=== PATIENT | female | born 1950 | race Caucasian/White ===

== ENCOUNTER 2017-01-28 16:09 | Emergency (ER) | payer OTHER ==
--- NOTE | 2017-01-28 16:07 | EDM.PDOC ---
<Jason Cadet - Last Filed: 01/28/17 18:41> ED HPI GENERAL MEDICAL PROBLEM - General Chief Complaint: Gastrointestinal Problem Stated Complaint: NAUSEA/VOMITING, COMING BY AMBULANCE Time Seen by Provider: 01/28/17 16:07 Source of Information: Reports: Patient, EMS, RN Notes Reviewed History Limitations: Reports: No Limitations - History of Present Illness INITIAL COMMENTS - FREE TEXT/NARRATIVE: Patient arrives by ambulance with complaint of nausea, vomiting and diarrhea since 01/25/17, after eating a sandwich that tasted "bad". Denies fever or chills. Admits to generalized weakness, dry mouth, generalized lower and left sided abdominal pain. Denies any bloody or black stool or emesis. Location: Reports: Abdomen Quality: Reports: Ache Severity: Severe Improves with: Reports: None Worsens with: Reports: None Associated Symptoms: Reports: No Other Symptoms Abdominal Pain Score (Numeric/FACES): 2 - Related Data Allergies Allergy/AdvReac Type Severity Reaction Status Date / Time erythromycin base Allergy Nausea and Verified 01/28/17 17:10 Vomiting Past Medical History Endocrine/Metabolic History: Reports: Obesity/BMI 30+ ED ROS GENERAL - Review of Systems Review Of Systems: ROS reveals no pertinent complaints other than HPI. ED EXAM, GI/ABD - Physical Exam Exam: See Below Exam Limited By: No Limitations General Appearance: Obese, Other (chronically ill appearing. ) Eyes: Bilateral: Normal Appearance Ears: Normal External Exam, Normal Canal, Hearing Grossly Normal, Normal TMs Nose: Normal Inspection, Normal Mucosa, No Blood Throat/Mouth: Other (dry oral membranes) Head: Atraumatic, Normocephalic Neck: Normal Inspection, Supple, Non-Tender, Full Range of Motion Respiratory/Chest: Other (decreased sounds in bilateral bases, clear breath sounds. ) Cardiovascular: Normal Peripheral Pulses, Regular Rate, Rhythm, No Edema, No Gallop, No JVD, No Murmur, No Rub GI/Abdominal Exam: Other (obese abdomen with mild tenderness at RLQ, LLQ and LUQ. ) (Female) Exam: Deferred Rectal (Female) Exam: Deferred Back Exam: Normal Inspection, Full Range of Motion, NT Extremities: Other (Pedal edema (chronic per patient). ) Neurological: Alert, Oriented, CN II-XII Intact, Normal Cognition, Normal Gait, Normal Reflexes, No Motor/Sensory Deficits Psychiatric: Normal Affect, Normal Mood Skin Exam: Warm, Dry, Intact, Normal Color, No Rash Course - Vital Signs Last Recorded V/S: Last Vital Signs Temp 96.8 F 01/28/17 21:23 Pulse 61 01/28/17 21:23 Resp 16 01/28/17 21:23 BP 142/73 H 01/28/17 21:23 Pulse Ox 94 L 01/28/17 21:23 - Orders/Labs/Meds Orders: Active Orders 24 hr Category Date Time Status Peripheral IV Care [RC] . DIRECTED Care 01/28/17 16:10 Active CULTURE BLOOD [BC] Stat Lab 01/28/17 16:27 Received CULTURE BLOOD [BC] Stat Lab 01/28/17 16:48 Received Blood Culture x2 Reflex Set [OM.PC] Stat Oth 01/28/17 16:10 Ordered Peripheral IV Insertion Adult [OM.PC] Stat Oth 01/28/17 16:09 Ordered Labs: Laboratory Tests 01/28/17 01/28/17 01/28/17 Range/Units 16:27 16:48 16:49 WBC 16.1 H (5.0-10.0) 10^3/uL RBC 5.77 H (4.2-5.4) 10^6/uL Hgb 16.6 H (12.0-16.0) g/dL Hct 49.4 H (37.0-47.0) % MCV 85.6 (80-100) fL MCH 28.8 (27.0-34.0) pg MCHC 33.6 (33.0-35.0) g/dL Plt Count 268 (150-450) 10^3/uL Neut % (Auto) 74.5 (42.2-75.2) % Lymph % (Auto) 9.1 L (20.5-50.1) % Beaver % (Auto) 9.5 H (2-8) % Eos % (Auto) 6.9 H (1.0-3.0) % Baso % (Auto) 0.0 (0.0-1.0) % Add Manual Diff Yes Neutrophils % (Manual) 60 % Band Neutrophils % 20 % Lymphocytes % (Manual) 9 % Monocytes % (Manual) 7 % Eosinophils % (Manual) 4 % Nucleated RBCs 1 /100WBC Toxic Granulation 1+ slight Platelet Estimate Adequate Giant Platelets Few Sodium 132 L (135-145) mmol/L Potassium 3.0 L (3.6-5.0) mmol/L Chloride 84 L (101-111) mmol/L Carbon Dioxide 32.0 H (21.0-31.0) mmol/L Anion Gap 19.0 BUN 45 H (7-18) mg/dL Creatinine 2.5 H (0.6-1.3) mg/dL Est Cr Clr Drug Dosing TNP Estimated GFR (MDRD) 19 BUN/Creatinine Ratio 18.00 Glucose 275 H (74-105) mg/dL Lactic Acid 1.9 (0.5-2.2) mmol/L Calcium 10.0 (8.4-10.2) mg/dl Total Bilirubin 1.0 (0.2-1.0) mg/dL AST 36 (10-42) IU/L ALT 26 (10-60) IU/L Alkaline Phosphatase 66 (42-121) IU/L Troponin I < 0.02 (0.00-0.02) ng/ml Total Protein 7.7 (6.7-8.2) g/dl Albumin 3.9 (3.2-5.5) g/dl Globulin 3.8 Albumin/Globulin Ratio 1.03 Amylase 59 (28-100) U/L Lipase 64 H (22-51) U/L Urine Color (YELLOW) Urine Appearance (CLEAR) Urine pH (5.0-9.0) Ur Specific [place] (1.005-1.030) Urine Protein (NEGATIVE) Urine Glucose (UA) (NEGATIVE) Urine Ketones (NEGATIVE) Urine Occult Blood (NEGATIVE) Urine Nitrite (NEGATIVE) Urine Bilirubin (NEGATIVE) Urine Urobilinogen (0.2-1.0) mg/dL Ur Leukocyte Esterase (NEGATIVE) Urine RBC /HPF Urine WBC (0-5/HPF) /HPF Ur Epithelial Cells /HPF Urine Bacteria (0-FEW/HPF) /HPF 01/28/17 Range/Units 17:09 WBC (5.0-10.0) 10^3/uL RBC (4.2-5.4) 10^6/uL Hgb (12.0-16.0) g/dL Hct (37.0-47.0) % MCV (80-100) fL MCH (27.0-34.0) pg MCHC (33.0-35.0) g/dL Plt Count (150-450) 10^3/uL Neut % (Auto) (42.2-75.2) % Lymph % (Auto) (20.5-50.1) % Beaver % (Auto) (2-8) % Eos % (Auto) (1.0-3.0) % Baso % (Auto) (0.0-1.0) % Add Manual Diff Neutrophils % (Manual) % Band Neutrophils % % Lymphocytes % (Manual) % Monocytes % (Manual) % Eosinophils % (Manual) % Nucleated RBCs /100WBC Toxic Granulation Platelet Estimate Giant Platelets Sodium (135-145) mmol/L Potassium (3.6-5.0) mmol/L Chloride (101-111) mmol/L Carbon Dioxide (21.0-31.0) mmol/L Anion Gap BUN (7-18) mg/dL Creatinine (0.6-1.3) mg/dL Est Cr Clr Drug Dosing Estimated GFR (MDRD) BUN/Creatinine Ratio Glucose (74-105) mg/dL Lactic Acid (0.5-2.2) mmol/L Calcium (8.4-10.2) mg/dl Total Bilirubin (0.2-1.0) mg/dL AST (10-42) IU/L ALT (10-60) IU/L Alkaline Phosphatase (42-121) IU/L Troponin I (0.00-0.02) ng/ml Total Protein (6.7-8.2) g/dl Albumin (3.2-5.5) g/dl Globulin Albumin/Globulin Ratio Amylase (28-100) U/L Lipase (22-51) U/L Urine Color Dark yellow (YELLOW) Urine Appearance Slightly cloudy (CLEAR) Urine pH 5.0 (5.0-9.0) Ur Specific [place] 1.015 (1.005-1.030) Urine Protein 100 H (NEGATIVE) Urine Glucose (UA) Negative (NEGATIVE) Urine Ketones Negative (NEGATIVE) Urine Occult Blood Negative (NEGATIVE) Urine Nitrite Negative (NEGATIVE) Urine Bilirubin Small H (NEGATIVE) Urine Urobilinogen 0.2 (0.2-1.0) mg/dL Ur Leukocyte Esterase Trace H (NEGATIVE) Urine RBC 0-5 /HPF Urine WBC 5-10 H (0-5/HPF) /HPF Ur Epithelial Cells Many H /HPF Urine Bacteria Few (0-FEW/HPF) /HPF Meds: Medications Discontinued Medications Generic Name Dose Route Start Last Admin Trade Name Samira PRN Reason Stop Dose Admin Ciprofloxacin 500 mg 01/28/17 20:31 01/28/17 20:45 Ciprofloxacin Hcl PO 01/28/17 20:32 500 mg ONETIME ONE Administration Fentanyl 25 mcg 01/28/17 19:16 01/28/17 19:29 Sublimaze IVPUSH 01/28/17 19:17 25 mcg ONETIME ONE Administration Sodium Chloride 1,000 mls @ 999 mls/hr 01/28/17 16:10 01/28/17 18:05 Normal Saline IV 01/28/17 17:10 999 mls/hr .BOLUS ONE Administration Potassium Chloride 10 meq/ 100 mls @ 100 mls/hr 01/28/17 17:38 01/28/17 18:07 Premix IV 01/28/17 18:37 100 mls/hr ONETIME ONE Administration Metoclopramide HCl 10 mg 01/28/17 19:14 01/28/17 19:28 Reglan IVPUSH 01/28/17 19:15 10 mg ONETIME ONE Administration Metronidazole 500 mg 01/28/17 20:31 01/28/17 20:45 Metronidazole PO 01/28/17 20:32 500 mg ONETIME ONE Administration Ondansetron HCl 4 mg 01/28/17 16:10 01/28/17 18:01 Zofran IV 01/28/17 16:11 4 mg ONETIME ONE Administration Sodium Chloride 10 ml 01/28/17 16:09 Saline Flush FLUSH ASDIRECTED PRN Keep Vein Open - Radiology Interpretation Free Text/Narrative:: CT abdomen and pelvis: Departure - Departure Disposition: Home, Self-Care 01 Clinical Impression: Gastroenteritis Abdominal pain Qualifiers: Abdominal location: lower abdomen, unspecified Qualified Code(s): R10.30 - Lower abdominal pain, unspecified Diverticulosis Qualifiers: Diverticulosis site: diverticulosis of large intestine Diverticulosis bleeding : diverticulosis without bleeding Qualified Code(s): K57.30 - Diverticulosis of large intestine without perforation or abscess without bleeding - Discharge Information Instructions: Abdominal Pain, Adult, [id number], Diverticulosis Referrals: PCP,None [Ordering Only Provider] - Forms: ED Department Discharge Additional Instructions: bland soft diet fluids zofran 4mg odt one every 6 hours as needed for nausea flagyl 500mg one three times daily for one week cipro 500mg one twice daily for one week clinic follow up this week, sooner if symptoms worsen <Nannette Edgar - Last Filed: 01/29/17 03:04> Course - Radiology Interpretation Free Text/Narrative:: diverticulosis without sx of diverticulitis - Re-Assessments/Exams Free Text/Narrative Re-Assessment/Exam: Pain improved. Departure - Departure Time of Disposition: 20:49 Condition: Fair
[~2017-01-28 16:09] MED LIST: Sodium Chloride 0.9% 10 ML Syringe FLUSH PRN
[2017-01-28] MEDS ORDERED: Sodium Chloride 0.9% 1,000 ML IV ONE (16:10)
[2017-01-28] MEDS ORDERED: Ondansetron 4 MG/2 ML SDV IV ONE (16:10)
[2017-01-28 17:00] LABS: CHLORIDE,CL 84 mmol/L (101-111); SODIUM,NA 132 mmol/L (135-145)
[2017-01-28] MEDS ORDERED: Potassium Chloride 10 MEQ in Premix Bag 1 BAG IV ONE (17:38)
[2017-01-28] MEDS ORDERED: Metoclopramide 10 MG/2 ML SDV IVPUSH ONE (19:14)
[2017-01-28] MEDS ORDERED: fentaNYL 100 MCG/2 ML SDV IVPUSH ONE (19:16)
[2017-01-28] MEDS ORDERED: Ciprofloxacin 500 MG Tab PO ONE (20:31)
[2017-01-28] MEDS ORDERED: metroNIDAZOLE 250 MG Tab PO ONE (20:31)
[2017-01-28 21:24] VITALS: BP 142/73
== END 2017-01-28 21:24 | disposition home or self-care (01) ==
LOC: DL.ED 16:09
DX: K57.30 Diverticulosis of large intestine without perforation or abscess without bleeding (principal); K52.9 Noninfective gastroenteritis and colitis, unspecified; E66.9 Obesity, unspecified; Z88.1 Allergy status to other antibiotic agents
CPT/HCPCS: 36415; 74176; 80053; 81001; 82150; 83605; 83690; 84484; 85025; 87040; 96365; 96375; 99284; A9270; J2405; J2765; J3010; J3480; J7030

== ENCOUNTER 2021-04-03 17:40 | Inpatient (IN) | payer MEDICARE, OTHER ==
[2021-04-03] MEDS ORDERED: Sodium Chloride 0.9% 10 ML Syringe FLUSH PRN (17:46)
[2021-04-03] MEDS ORDERED: Diphtheria,Pertussis(Acell),Tetanus Vaccine 0.5 ML Syringe IM ONE (17:53)
[2021-04-03] MEDS ORDERED: Iopamidol 612 MG/ML 100 ML Bottle IVPUSH ONE (18:16)
[2021-04-03 18:32] LABS: PTT,PARTIAL THROMBOPLSTIN TIME 19.1 SEC (22.0-34.0)
[2021-04-03 18:43] LABS: CHLORIDE,CL 92 mmol/L (98-107); SODIUM,NA 129 mmol/L (136-145)
--- NOTE | 2021-04-03 19:01 | CT ---
PROCEDURE INFORMATION: Exam: CT Head Without Contrast Exam date and time: 04/03/2021 6:15 PM Age: 70 years old Clinical indication: Injury or trauma; Fall; Blunt trauma (contusions or hematomas); Consciousness not specified; Additional info: Trauma: Fall head injury TECHNIQUE: Imaging protocol: Computed tomography of the head without contrast. Radiation optimization: All CT scans at this facility use at least one of these dose optimization techniques: automated exposure control; mA and/or kV adjustment per patient size (includes targeted exams where dose is matched to clinical indication); or iterative reconstruction. COMPARISON: CT Head wo Cont 07/01/2015 9:23 AM FINDINGS: Brain: There is mild amount of scattered areas of hypoattenuation of the supratentorial white matter, most likely secondary to microvascular ischemic changes. No acute intracranial hemorrhage. Cerebral ventricles: No ventriculomegaly. Paranasal sinuses: Visualized sinuses are unremarkable. No fluid levels. Mastoid air cells: Visualized mastoid air cells are well aerated. Bones/joints: Unremarkable. No acute fracture. Soft tissues: Unremarkable. IMPRESSION: No acute intracranial process.
--- NOTE | 2021-04-03 19:03 | CT ---
PROCEDURE INFORMATION: Exam: CT Cervical Spine Without Contrast Exam date and time: 04/03/2021 6:15 PM Age: 70 years old Clinical indication: Injury or trauma; Fall; Blunt trauma; Additional info: Trauma: Fall head injury TECHNIQUE: Imaging protocol: Computed tomography images of the cervical spine without contrast. Radiation optimization: All CT scans at this facility use at least one of these dose optimization techniques: automated exposure control; mA and/or kV adjustment per patient size (includes targeted exams where dose is matched to clinical indication); or iterative reconstruction. COMPARISON: MR Cervical Spine Comp wo Cont 10/29/2019 1:16 PM FINDINGS: Bones/joints: No acute fracture. Normal alignment. Discs/Spinal canal/Neural foramina: No significant spinal stenosis. Lungs: Lung apices are normal. Soft tissues: Unremarkable. IMPRESSION: No acute fracture or dislocation.
--- NOTE | 2021-04-03 19:08 | EDM.PDOC ---
Scribed by Sandra Richards 04/03/21 1908 for Jason Cadet MD ED HPI GENERAL MEDICAL PROBLEM <Sergio Aaron - Last Filed: 04/03/21 20:50> - General Source of Information: Reports: Patient, EMS, EMS Notes Reviewed, RN, RN Notes Reviewed History Limitations: Reports: No Limitations - History of Present Illness Onset: Today Severity: Severe <Jason Cadet - Last Filed: 04/04/21 07:15> - General Chief Complaint: Trauma Stated Complaint: AMBULANCE Time Seen by Provider: 04/03/21 17:45 - History of Present Illness INITIAL COMMENTS - FREE TEXT/NARRATIVE: Patient arrives to ED by [facility] after a ground level fall at home. Patient states that she hit the back of her head but did not loose consciousness. She has a skin tear on the right arm and pain in the left pelvis. Patient lives home alone and reports that she has had multiple frequent falls in the past few weeks. She denies neck pain, chest pain, nausea, vomiting or shortness of breath. Pt converted to a trauma chart by the RN during the triage process when it was discovered that the pt was on a daily Aspirin 81mg. Pt arrived to ER with no c- collar or c-spine precautions. NEXUS criteria was negative, and c-spine cleared by Hx and exam. No c-collar in ER. GCS on arrival: 15. (Jason Cadet) - Related Data Allergies Allergy/AdvReac Type Severity Reaction Status Date / Time erythromycin base Allergy Nausea and Verified 01/28/17 17:10 Vomiting megestrol Allergy HIVES/UTICA Verified 10/13/18 12:20 LAURA niacin Allergy UNKNOWN Verified 10/13/18 12:20 alcohol AdvReac Itching Verified 10/13/18 12:20 metolazone AdvReac DIZZY, Verified 10/13/18 12:20 LIGHTHEADED Home Meds: Home Meds Ascorbic Acid [Vitamin C with Alba Hips] 1,000 mg PO DAILY 04/03/21 [History] Aspirin [Adult Low Dose Aspirin EC] 81 mg PO DAILY 04/03/21 [History] Calcitriol 0.25 mcg PO DAILY 04/03/21 [History] FLUoxetine [PROzac] 20 mg PO TID 04/03/21 [History] Furosemide 60 mg PO TID 04/03/21 [History] Gabapentin [Neurontin] 300 mg PO BEDTIME 04/03/21 [History] Isosorbide Mononitrate [Isosorbide Mononitrate ER] 30 mg PO DAILY 04/03/21 [History] Metoprolol Tartrate 100 mg PO BID 04/03/21 [History] Montelukast [Singulair] 10 mg PO BEDTIME 04/03/21 [History] Potassium Chloride 20 meq PO DAILY 04/03/21 [History] Simvastatin 40 mg PO BEDTIME 04/03/21 [History] Spironolactone [Aldactone] 25 mg PO DAILY 04/03/21 [History] allopurinoL [Zyloprim] 100 mg PO DAILY 04/03/21 [History] amLODIPine [Norvasc] 5 mg PO DAILY 04/03/21 [History] glipiZIDE [Glucotrol] 5 mg PO DAILY 04/03/21 [History] Past Medical History HEENT History: Reports: Impaired Vision Cardiovascular History: Reports: Hypertension Psychiatric History: Reports: Depression Endocrine/Metabolic History: Reports: Obesity/BMI 30+ <Jason Cadet - Last Filed: 04/04/21 07:15> Social & Family History - Caffeine Use Caffeine Use: Reports: Coffee, Soda, Tea <Jason Cadet - Last Filed: 04/04/21 07:15> Review of Systems - Review of Systems Review Of Systems: Comprehensive ROS is negative, except as noted in HPI. <Jason Cadet - Last Filed: 04/04/21 07:15> ED EXAM, GENERAL - Physical Exam Exam: See Below Exam Limited By: No Limitations General Appearance: Alert, WD/WN, Moderate Distress Eye Exam: Bilateral Eye: EOMI, Normal Inspection, PERRL Ears: Normal External Exam, Normal Canal, Hearing Grossly Normal, Normal TMs Nose: Normal Inspection, Normal Mucosa, No Blood Throat/Mouth: Normal Inspection, Normal Lips, Normal Teeth, Normal Gums, Normal Oropharynx, Normal Voice, No Airway Compromise Head: Atraumatic, Normocephalic Neck: Normal Inspection, Supple, Non-Tender, Full Range of Motion Respiratory/Chest: No Respiratory Distress, Lungs Clear, Normal Breath Sounds, No Accessory Muscle Use, Chest Non-Tender Cardiovascular: Normal Peripheral Pulses, Regular Rate, Rhythm, No Edema, No Gallop, No JVD, No Murmur, No Rub GI/Abdominal: Normal Bowel Sounds, Soft, Non-Tender, No Organomegaly, No Distention, No Abnormal Bruit, No Mass, Other (obese) Back Exam: Normal Inspection, Full Range of Motion, NT Extremities: Other (upper extremity bruising) Psychiatric: Normal Affect, Normal Mood Skin Exam: Other (multiple bruises in different stages of healing) Lymphatic: No Adenopathy <Sergoi Aaron - Last Filed: 04/03/21 20:50> #1 Interpretation EKG Date: 04/03/21 Time: 17:53 Rhythm: Other (sinus rhythm with paired PVCs.) Rate (Beats/Min): 78 [place]: LAD-Left [place] Deviation P-Wave: Present QRS: Other (nonspecific IVCD, LVH, old inferior Q waves, anterior Q waves possibly due to LVH.) ST-T: Normal QT: Normal <Jason Cadet - Last Filed: 04/04/21 07:15> Course - Vital Signs Last Recorded V/S: Last Vital Signs Temp 98.0 F 04/03/21 22:04 Pulse 80 04/03/21 22:04 Resp 16 04/03/21 22:04 BP 136/57 L 04/03/21 22:04 Pulse Ox 97 04/03/21 22:04 - Orders/Labs/Meds Orders: Active Orders 24 hr Category Date Time Status Admission Diagnosis [ADT] Urgent ADT 04/03/21 20:48 Ordered CULTURE BLOOD [BC] Stat Lab 04/03/21 20:47 Received CULTURE URINE [RM] Stat Lab 04/03/21 19:59 Received Sodium Chloride 0.9% [Saline Flush] Med 04/03/21 17:46 Active 10 ml FLUSH ASDIRECTED PRN Peripheral IV Insertion Adult [OM.PC] Stat Oth 04/03/21 17:48 Ordered Medication Orders Acetaminophen (Acetaminophen 325 Mg Tab) 650 mg PO Q4H PRN PRN Reason: Pain (Mild 1-3)/fever Allopurinol (Allopurinol 100 Mg Tab) 100 mg PO DAILY [facility] Amlodipine Besylate (Amlodipine 5 Mg Tab) 5 mg PO DAILY [facility] Ascorbic Acid (Ascorbic Acid 500 Mg Tab) 1,000 mg PO DAILY [facility] Aspirin (Aspirin 81 Mg Tab.Ec) 81 mg PO DAILY [facility] Bisacodyl (Bisacodyl 5 Mg Tab) 5 mg PO DAILY PRN PRN Reason: Constipation Calcitriol (Calcitriol 0.25 Mcg Cap) 0.25 mcg PO DAILY [facility] Ceftriaxone Sodium (Ceftriaxone 1 Gm Vial) 1 gm IM Q24H [facility] Dextrose/Water (50% Dextrose In Water 50 Ml Syringe) 50 ml IVPUSH Q15M PRN PRN Reason: Hypoglycemia Docusate Sodium (Docusate Sodium 100 Mg Cap) 100 mg PO BID PRN PRN Reason: Constipation Enoxaparin Sodium (Enoxaparin 30 Mg/0.3 Ml Syringe) 30 mg SUBCUT DAILY [facility] Fluoxetine HCl (Fluoxetine 10 Mg Cap) 20 mg PO TID [facility] Furosemide (Furosemide 40 Mg Tab) 60 mg PO TID [facility] Gabapentin (Gabapentin 300 Mg Cap) 300 mg PO BEDTIME [facility] Glipizide (Glipizide 5 Mg Tab) 5 mg PO DAILY [facility] Glucagon (Glucagon,Human Recombinant 1 Mg Vial) 1 mg IM Q15M PRN PRN Reason: Hypoglycemia Insulin Human Lispro (Insulin Lispro 100 Units/Ml 3 Ml Vial) 0 unit SUBCUT WITHMEALSANDBED [facility]; Protocol Isosorbide Mononitrate (Isosorbide Mononitrate 30 Mg Tab.Er) 30 mg PO DAILY [facility] Metoprolol Tartrate (Metoprolol Tartrate 50 Mg Tab) 100 mg PO BID [facility] Montelukast Sodium (Montelukast 10 Mg Tab) 10 mg PO BEDTIME [facility] Ondansetron HCl (Ondansetron 4 Mg/2 Ml Sdv) 4 mg IVPUSH Q4H PRN PRN Reason: Nausea/Vomiting Potassium Chloride (Potassium Chloride 10 Meq Tab.Er) 20 meq PO DAILY [facility] Senna/Docusate Sodium (Docusate Sodium/Sennosides 50-8.6 Mg Tab) 1 tab PO BEDTIME PRN PRN Reason: Constipation Simvastatin (Simvastatin 40 Mg Tab) 40 mg PO BEDTIME [facility] Sodium Chloride (Sodium Chloride 0.9% 10 Ml Syringe) 10 ml FLUSH ASDIRECTED PRN PRN Reason: Keep Vein Open Last Admin: 04/03/21 20:39 Dose: 10 ml Documented by: KISHORE Spironolactone (Spironolactone 25 Mg Tab) 25 mg PO DAILY [facility] Labs: Laboratory Tests 10/11/21 10/11/21 10/11/21 Range/Units 18:02 18:02 18:02 WBC 21.6 H (5.0-10.0) 10^3/uL RBC 4.51 (4.2-5.4) 10^6/uL Hgb 12.8 D (12.0-16.0) g/dL Hct 37.1 (37.0-47.0) % MCV 82.3 D (80-100) fL MCH 28.4 (27.0-34.0) pg MCHC 34.5 (33.0-35.0) g/dL Plt Count 369 D (150-450) 10^3/uL Neut % (Auto) 82.0 H (42.2-75.2) % Lymph % (Auto) 7.8 L (20.5-50.1) % [place] % (Auto) 9.9 H (2-8) % Eos % (Auto) 0.0 L (1.0-3.0) % Baso % (Auto) 0.3 (0.0-1.0) % Add Manual Diff Yes Neutrophils % (Manual) 81 H (42-75) % Band Neutrophils % 2 % Lymphocytes % (Manual) 8 L (20-50) % Monocytes % (Manual) 9 H (2-8) % PT 10.6 (9.0-12.0) SEC INR 1.1 (0.9-1.2) APTT 19.1 L (22.0-34.0) SEC Sodium 129 L (136-145) mmol/L Potassium 5.0 (3.5-5.1) mmol/L Chloride 92 L (98-107) mmol/L Carbon Dioxide 22 (21-32) mmol/L Anion Gap 20.0 H (7-13) mEq/L BUN 93 H (7-18) mg/dL Creatinine 2.71 H (0.55-1.02) mg/dL Est Cr Clr Drug Dosing TNP Estimated GFR (MDRD) 17 BUN/Creatinine Ratio 34.3 (No establ ref range) Glucose 421 H* (70-99) mg/dL Calcium 9.0 (8.5-10.1) mg/dL Total Bilirubin 1.1 H (0.2-1.0) mg/dL AST 79 H (15-37) U/L ALT 67 H (14-59) U/L Alkaline Phosphatase 54 (46-116) U/L Troponin I High Sens 11 (<=51) pg/mL Total Protein 6.2 L (6.4-8.2) g/dL Albumin 3.2 L (3.4-5.0) g/dL Globulin 3.0 Albumin/Globulin Ratio 1.07 Urine Color (YELLOW) Urine Appearance (CLEAR) Urine pH (5.0-9.0) Ur Specific [place] (1.005-1.030) Urine Protein (NEGATIVE) Urine Glucose (UA) (NEGATIVE) Urine Ketones (NEGATIVE) Urine Occult Blood (NEGATIVE) Urine Nitrite (NEGATIVE) Urine Bilirubin (NEGATIVE) Urine Urobilinogen (0.2-1.0) mg/dL Ur Leukocyte Esterase (NEGATIVE) Urine RBC (0-5) /HPF Urine WBC (0-5/HPF) /HPF Ur Epithelial Cells (NOT SEEN) /HPF Amorphous Sediment (NOT SEEN) /HPF Urine Bacteria (0-FEW/HPF) /HPF Urine Mucus (NOT SEEN) /LPF Urine Opiates Screen (NEGATIVE) Ur Oxycodone Screen (NEGATIVE) Urine Methadone Screen (NEGATIVE) Ur Barbiturates Screen (NEGATIVE) U Tricyclic Antidepress (NEGATIVE) Ur Phencyclidine Scrn (NEGATIVE) Ur Amphetamine Screen (NEGATIVE) U Methamphetamines Scrn (NEGATIVE) Urine MDMA Screen (NEGATIVE) U Benzodiazepines Scrn (NEGATIVE) Urine Cocaine Screen (NEGATIVE) U Marijuana (THC) Screen (NEGATIVE) Ethyl Alcohol < 3 (0) mg/dL SARS-CoV-2 RNA ([place]EL[place]) (NEGATIVE) 04/03/21 04/03/21 04/03/21 Range/Units 19:43 19:59 19:59 WBC (5.0-10.0) 10^3/uL RBC (4.2-5.4) 10^6/uL Hgb (12.0-16.0) g/dL Hct (37.0-47.0) % MCV (80-100) fL MCH (27.0-34.0) pg MCHC (33.0-35.0) g/dL Plt Count (150-450) 10^3/uL Neut % (Auto) (42.2-75.2) % Lymph % (Auto) (20.5-50.1) % [place] % (Auto) (2-8) % Eos % (Auto) (1.0-3.0) % Baso % (Auto) (0.0-1.0) % Add Manual Diff Neutrophils % (Manual) (42-75) % Band Neutrophils % % Lymphocytes % (Manual) (20-50) % Monocytes % (Manual) (2-8) % PT (9.0-12.0) SEC INR (0.9-1.2) APTT (22.0-34.0) SEC Sodium (136-145) mmol/L Potassium (3.5-5.1) mmol/L Chloride (98-107) mmol/L Carbon Dioxide (21-32) mmol/L Anion Gap (7-13) mEq/L BUN (7-18) mg/dL Creatinine (0.55-1.02) mg/dL Est Cr Clr Drug Dosing Estimated GFR (MDRD) BUN/Creatinine Ratio (No establ ref range) Glucose (70-99) mg/dL Calcium (8.5-10.1) mg/dL Total Bilirubin (0.2-1.0) mg/dL AST (15-37) U/L ALT (14-59) U/L Alkaline Phosphatase (46-116) U/L Troponin I High Sens (<=51) pg/mL Total Protein (6.4-8.2) g/dL Albumin (3.4-5.0) g/dL Globulin Albumin/Globulin Ratio Urine Color Yellow (YELLOW) Urine Appearance Turbid (CLEAR) Urine pH 8.5 (5.0-9.0) Ur Specific [place] 1.020 (1.005-1.030) Urine Protein Negative (NEGATIVE) Urine Glucose (UA) 100 H (NEGATIVE) Urine Ketones Negative (NEGATIVE) Urine Occult Blood Negative (NEGATIVE) Urine Nitrite Positive H (NEGATIVE) Urine Bilirubin Negative (NEGATIVE) Urine Urobilinogen 0.2 (0.2-1.0) mg/dL Ur Leukocyte Esterase Small H (NEGATIVE) Urine RBC 0-5 (0-5) /HPF Urine WBC 30-40 H (0-5/HPF) /HPF Ur Epithelial Cells Few (NOT SEEN) /HPF Amorphous Sediment Moderate H (NOT SEEN) /HPF Urine Bacteria Many H (0-FEW/HPF) /HPF Urine Mucus Few H (NOT SEEN) /LPF Urine Opiates Screen Negative (NEGATIVE) Ur Oxycodone Screen Negative (NEGATIVE) Urine Methadone Screen Negative (NEGATIVE) Ur Barbiturates Screen Negative (NEGATIVE) U Tricyclic Antidepress Negative (NEGATIVE) Ur Phencyclidine Scrn Negative (NEGATIVE) Ur Amphetamine Screen Negative (NEGATIVE) U Methamphetamines Scrn Negative (NEGATIVE) Urine MDMA Screen Negative (NEGATIVE) U Benzodiazepines Scrn Negative (NEGATIVE) Urine Cocaine Screen Negative (NEGATIVE) U Marijuana (THC) Screen Negative (NEGATIVE) Ethyl Alcohol (0) mg/dL SARS-CoV-2 RNA ([place]) Negative (NEGATIVE) Meds: Medications Generic Name Dose Route Start Last Admin Trade Name Freq PRN Reason Stop Dose Admin Acetaminophen 650 mg 04/03/21 22:04 Acetaminophen 325 Mg Tab PO Q4H PRN Pain (Mild 1-3)/fever Allopurinol 100 mg 04/04/21 09:00 Allopurinol 100 Mg Tab PO DAILY [facility] Amlodipine Besylate 5 mg 04/04/21 09:00 Amlodipine 5 Mg Tab PO DAILY [facility] Ascorbic Acid 1,000 mg 04/04/21 09:00 Ascorbic Acid 500 Mg Tab PO DAILY [facility] Aspirin 81 mg 04/04/21 09:00 Aspirin 81 Mg Tab.Ec PO DAILY [facility] Bisacodyl 5 mg 04/03/21 22:04 Bisacodyl 5 Mg Tab PO DAILY PRN Constipation Calcitriol 0.25 mcg 04/04/21 09:00 Calcitriol 0.25 Mcg Cap PO DAILY [facility] Ceftriaxone Sodium 1 gm 04/04/21 21:00 Ceftriaxone 1 Gm Vial IM Q24H [facility] Dextrose/Water 50 ml 04/03/21 22:13 50% Dextrose In Water 50 Ml Syringe IVPUSH Q15M PRN Hypoglycemia Docusate Sodium 100 mg 04/03/21 22:04 Docusate Sodium 100 Mg Cap PO BID PRN Constipation Enoxaparin Sodium 30 mg 04/04/21 09:00 Enoxaparin 30 Mg/0.3 Ml Syringe SUBCUT DAILY [facility] Fluoxetine HCl 20 mg 04/04/21 09:00 Fluoxetine 10 Mg Cap PO TID [facility] Furosemide 60 mg 04/04/21 09:00 Furosemide 40 Mg Tab PO TID [facility] Gabapentin 300 mg 04/04/21 21:00 Gabapentin 300 Mg Cap PO BEDTIME [facility] Glipizide 5 mg 04/04/21 09:00 Glipizide 5 Mg Tab PO DAILY [facility] Glucagon 1 mg 04/03/21 22:13 Glucagon,Human Recombinant 1 Mg Vial IM Q15M PRN Hypoglycemia Insulin Human Lispro 0 unit 04/04/21 08:00 Insulin Lispro 100 Units/Ml 3 Ml Vial SUBCUT WITHMEALSANDBED [facility] Protocol Isosorbide Mononitrate 30 mg 04/04/21 09:00 Isosorbide Mononitrate 30 Mg Tab.Er PO DAILY [facility] Metoprolol Tartrate 100 mg 04/04/21 09:00 Metoprolol Tartrate 50 Mg Tab PO BID [facility] Montelukast Sodium 10 mg 04/04/21 21:00 Montelukast 10 Mg Tab PO BEDTIME [facility] Ondansetron HCl 4 mg 04/03/21 22:04 Ondansetron 4 Mg/2 Ml Sdv IVPUSH Q4H PRN Nausea/Vomiting Potassium Chloride 20 meq 04/04/21 09:00 Potassium Chloride 10 Meq Tab.Er PO DAILY [facility] Senna/Docusate Sodium 1 tab 04/03/21 22:04 Docusate Sodium/Sennosides 50-8.6 Mg Tab PO BEDTIME PRN Constipation Simvastatin 40 mg 04/04/21 21:00 Simvastatin 40 Mg Tab PO BEDTIME [facility] Sodium Chloride 10 ml 04/03/21 17:46 04/03/21 20:39 Sodium Chloride 0.9% 10 Ml Syringe FLUSH 10 ml ASDIRECTED PRN Administration Keep Vein Open Spironolactone 25 mg 04/04/21 09:00 Spironolactone 25 Mg Tab PO DAILY [facility] Discontinued Medications Generic Name Dose Route Start Last Admin Trade Name Freq PRN Reason Stop Dose Admin Diphtheria/Tetanus/Acell Pertussis 0.5 ml 04/03/21 17:53 04/03/21 20:04 Diphtheria,Pertussis(Acell),Tetanus Vaccine 0.5 Ml Syringe IM 04/03/21 17:54 0.5 ml .ONCE ONE Administration Gabapentin 300 mg 04/03/21 22:50 04/03/21 23:21 Gabapentin 300 Mg Cap PO 04/03/21 22:51 300 mg ONETIME ONE Administration Ceftriaxone Sodium 1 gm/ 50 mls @ 100 mls/hr 04/03/21 20:20 04/03/21 20:38 Sodium Chloride IV 04/03/21 20:49 100 mls/hr ONETIME ONE Administration Iopamidol 100 ml 04/03/21 18:16 04/03/21 18:54 Iopamidol 612 Mg/Ml 100 Ml Bottle IVPUSH 04/03/21 18:17 100 ml ONETIME ONE Administration Departure - Departure Time of Disposition: 20:50 Condition: Fair <Sergio Aaron - Last Filed: 04/03/21 20:50> <Jason Cadet - Last Filed: 04/04/21 07:15> - Departure Disposition: Admitted As Inpatient 68 Clinical Impression: UTI (urinary tract infection), Hyponatremia, Frequent falls - My Orders Last 24 Hours: My Active Orders 04/03/21 17:46 Sodium Chloride 0.9% [Saline Flush] 10 ml FLUSH ASDIRECTED PRN 04/03/21 17:48 Peripheral IV Insertion Adult [OM.PC] Stat 04/03/21 19:59 CULTURE URINE [RM] Stat - Assessment/Plan Last 24 Hours: My Active Orders 04/03/21 17:46 Sodium Chloride 0.9% [Saline Flush] 10 ml FLUSH ASDIRECTED PRN 04/03/21 17:48 Peripheral IV Insertion Adult [OM.PC] Stat 04/03/21 19:59 CULTURE URINE [RM] Stat I have read and agree with the documentation that has been completed regarding this visit. By signing this record, I attest that the documentation was completed in my physical presence and is an accurate record of the encounter.
--- NOTE | 2021-04-03 19:24 | CT ---
PROCEDURE INFORMATION: Exam: CT Chest With Contrast; Diagnostic Exam date and time: 04/03/2021 6:25 PM Age: 70 years old Clinical indication: Injury or trauma; Fall; Generalized; Blunt trauma (contusions or hematomas); Additional info: Trauma: Fall, leigh pelvis pain TECHNIQUE: Imaging protocol: Diagnostic computed tomography of the chest with contrast. Radiation optimization: All CT scans at this facility use at least one of these dose optimization techniques: automated exposure control; mA and/or kV adjustment per patient size (includes targeted exams where dose is matched to clinical indication); or iterative reconstruction. Contrast material: ISOVUE 300; Contrast volume: 125 ml; Contrast route: INTRAVENOUS (IV); COMPARISON: CT Abdomen Pelvis wo Cont 11/24/2018 10:07 AM FINDINGS: Lungs: Unremarkable. No consolidation. No masses. Pleural spaces: Unremarkable. No pneumothorax. No pleural effusion. Heart: Unremarkable. No cardiomegaly. No pericardial effusion. Aorta: Unremarkable. No aortic aneurysm. Lymph nodes: Unremarkable. No enlarged lymph nodes. Bones/joints: Unremarkable. No acute fracture. Soft tissues: Unremarkable. IMPRESSION: No acute findings. PROCEDURE INFORMATION: Exam: CT Abdomen And Pelvis With Contrast Exam date and time: 04/03/2021 6:25 PM Age: 70 years old Clinical indication: Injury or trauma; Fall; Generalized; Blunt trauma (contusions or hematomas); Additional info: Trauma: Fall, leigh pelvis pain TECHNIQUE: Imaging protocol: Computed tomography of the abdomen and pelvis with contrast. Radiation optimization: All CT scans at this facility use at least one of these dose optimization techniques: automated exposure control; mA and/or kV adjustment per patient size (includes targeted exams where dose is matched to clinical indication); or iterative reconstruction. Contrast material: ISOVUE 300; Contrast volume: 125 ml; Contrast route: INTRAVENOUS (IV); COMPARISON: CT Abdomen Pelvis wo Cont 11/24/2018 10:07 AM FINDINGS: Liver: Normal. No mass. Gallbladder and bile ducts: Normal. No calcified stones. No ductal dilation. Pancreas: Normal. No ductal dilation. Spleen: Normal. No splenomegaly. Adrenal glands: Normal. No mass. Kidneys and ureters: Normal. No hydronephrosis. Stomach and bowel: There are scattered diverticuli in the distal colon. Pericolonic fat planes are preserved. Bowel gas pattern is nonobstructive. Appendix: No evidence of appendicitis. Intraperitoneal space: Unremarkable. No free air. No significant fluid collection. Vasculature: Unremarkable. No abdominal aortic aneurysm. Lymph nodes: Unremarkable. No enlarged lymph nodes. Urinary bladder: Unremarkable as visualized. Reproductive: Unremarkable as visualized. Bones/joints: Scattered sclerotic foci in pelvis most likely bone islands. No acute fracture. Soft tissues: Unremarkable. IMPRESSION: Colonic diverticulosis. No CT evidence of diverticulitis. No evidence of solid abdominal organ injury.
[2021-04-03 20:10] LABS: AMPHETAMINES,URINE NEGATIVE (NEGATIVE); BARBITURATES,URINE NEGATIVE (NEGATIVE); BENZODIAZEPINE,URINE NEGATIVE (NEGATIVE); MDMA (ECSTASY), URINE NEGATIVE (NEGATIVE); METHADONE,URINE NEGATIVE (NEGATIVE); METHAMPHETAMINES,URINE NEGATIVE (NEGATIVE); OPIATES,URINE NEGATIVE (NEGATIVE); OXYCODONE,URINE NEGATIVE (NEGATIVE); PHENCYCLIDINE,URINE NEGATIVE (NEGATIVE); TCA,URINE NEGATIVE (NEGATIVE)
[2021-04-03] MEDS ORDERED: cefTRIAXone 1 GM in Sodium Chloride 0.9% 50 ML IV ONE (20:20)
[2021-04-03] MEDS ORDERED: Bisacodyl 5 MG Tab PO PRN (22:04)
[2021-04-03] MEDS ORDERED: Acetaminophen 325 MG Tab PO PRN (22:04)
[2021-04-03] MEDS ORDERED: Ondansetron 4 MG/2 ML SDV IVPUSH PRN (22:04)
[2021-04-03] MEDS ORDERED: Docusate Sodium 100 MG Cap PO PRN (22:04)
[2021-04-03] MEDS ORDERED: Glucagon,Human Recombinant 1 MG Vial IM PRN (22:13)
[2021-04-03] MEDS ORDERED: 50% Dextrose in Water 50 ML Syringe IVPUSH PRN (22:13)
--- NOTE | 2021-04-03 22:22 | PCM.HP ---
H&P History of Present Illness - General Date of Service: 04/03/21 Admit Problem/Dx: Admission Diagnosis/Problem Admission Diagnosis/Problem UTI, Urinary tract infectious disease Source of Information: Patient, Provider (ER provider) - History of Present Illness Initial Comments - Free Text/Narative: Patient arrived to ED by Ambulance after a ground level fall at home. Patient states that she hit the back of her head but did not loose consciousness. She has a skin tear on the right arm and pain in the left pelvis. Patient lives home alone and reports that she has had multiple frequent falls in the past few weeks. in fact she fell on Saturday. She denies neck pain, chest pain, nausea, vomiting or shortness of breath. Pt states that her knees gave up while in bath room. She states that she has spinal stenosis and she is scheduled for back surgery in the first week of Apr. PMH: Obesity, DM tyoe 2, recently stopped Insulin to oral medications. CKD stage 4 Chronic lower ext edema Old RT ankle injury ( with chronic brace). PSH: Appendectomy , Cholecystectomy and hematoma drainage of te thigh long time ago. Onset of Symptoms: Reports: Today - Related Data Allergies/Adverse Reactions: Allergies Allergy/AdvReac Type Severity Reaction Status Date / Time erythromycin base Allergy Nausea and Verified 01/28/17 17:10 Vomiting megestrol Allergy HIVES/UTICA Verified 10/13/18 12:20 LAURA niacin Allergy UNKNOWN Verified 10/13/18 12:20 alcohol AdvReac Itching Verified 10/13/18 12:20 metolazone AdvReac DIZZY, Verified 10/13/18 12:20 LIGHTHEADED Home Medications: Home Meds Ascorbic Acid [Vitamin C with Alba Hips] 1,000 mg PO DAILY 04/03/21 [History] Aspirin [Adult Low Dose Aspirin EC] 81 mg PO DAILY 04/03/21 [History] Calcitriol 0.25 mcg PO DAILY 04/03/21 [History] FLUoxetine [PROzac] 20 mg PO TID 04/03/21 [History] Furosemide 60 mg PO TID 04/03/21 [History] Gabapentin [Neurontin] 300 mg PO BEDTIME 04/03/21 [History] Isosorbide Mononitrate [Isosorbide Mononitrate ER] 30 mg PO DAILY 04/03/21 [History] Metoprolol Tartrate 100 mg PO BID 04/03/21 [History] Montelukast [Singulair] 10 mg PO BEDTIME 04/03/21 [History] Potassium Chloride 20 meq PO DAILY 04/03/21 [History] Simvastatin 40 mg PO BEDTIME 04/03/21 [History] Spironolactone [Aldactone] 25 mg PO DAILY 04/03/21 [History] allopurinoL [Zyloprim] 100 mg PO DAILY 04/03/21 [History] amLODIPine [Norvasc] 5 mg PO DAILY 04/03/21 [History] glipiZIDE [Glucotrol] 5 mg PO DAILY 04/03/21 [History] Past Medical History HEENT History: Reports: Impaired Vision Cardiovascular History: Reports: High Cholesterol, Hypertension Psychiatric History: Reports: Depression Endocrine/Metabolic History: Reports: Diabetes, Type II, Obesity/BMI 30+ Social & Family History - Caffeine Use Caffeine Use: Reports: Coffee, Soda, Tea H&P Review of Systems - Review of Systems: Review Of Systems: Comprehensive ROS is negative, except as noted in HPI. General: Denies: Fever, Chills Pulmonary: Denies: Shortness of Breath Cardiovascular: Denies: Chest Pain Gastrointestinal: Denies: Abdominal Pain Genitourinary: Denies: Dysuria Musculoskeletal: Reports: Other (multiple large bruses all over with abrasions to B upper ext) Psychiatric: Denies: Confusion Neurological: Denies: Confusion Hematologic/Lymphatic: Denies: No Symptoms Immunologic: Reports: No Symptoms Exam - Exam Exam: See Below - Exam Quality Assessment: No: Supplemental Oxygen General: Alert, Oriented, Cooperative. No: Mild Distress HEENT: Conjunctiva Clear Neck: Supple Lungs: Clear to Auscultation, Normal Respiratory Effort Cardiovascular: Regular Rate, Regular Rhythm GI/Abdominal Exam: Normal Bowel Sounds, Soft, Non-Tender Rectal (Female) Exam: Deferred Back Exam: Normal Inspection Extremities: Pedal Edema, Other (Ankle support to RT . full range of motion) Skin: Ecchymosis (echhhymosis all over. large abrasions to upper ext. ), Other Neurological: Cranial Nerves Intact, Normal Speech Neuro Extensive - Mental Status: Alert, Oriented x3 Neuro Extensive - Motor, Sensory, Reflexes: CN II-XII Intact. No: Facial Palsy (R), Motor/Sensory Deficits Psychiatric: Alert, Normal Affect, Normal Mood - Patient Data Lab Results Last 24 hrs: Laboratory Results - last 24 hr 04/03/21 04/03/21 04/03/21 Range/Units 18:02 18:02 18:02 WBC 21.6 H (5.0-10.0) 10^3/uL RBC 4.51 (4.2-5.4) 10^6/uL Hgb 12.8 D (12.0-16.0) g/dL Hct 37.1 (37.0-47.0) % MCV 82.3 D (80-100) fL MCH 28.4 (27.0-34.0) pg MCHC 34.5 (33.0-35.0) g/dL Plt Count 369 D (150-450) 10^3/uL Neut % (Auto) 82.0 H (42.2-75.2) % Lymph % (Auto) 7.8 L (20.5-50.1) % Pender % (Auto) 9.9 H (2-8) % Eos % (Auto) 0.0 L (1.0-3.0) % Baso % (Auto) 0.3 (0.0-1.0) % Add Manual Diff Yes Neutrophils % (Manual) 81 H (42-75) % Band Neutrophils % 2 % Lymphocytes % (Manual) 8 L (20-50) % Monocytes % (Manual) 9 H (2-8) % PT 10.6 (9.0-12.0) SEC INR 1.1 (0.9-1.2) APTT 19.1 L (22.0-34.0) SEC Sodium 129 L (136-145) mmol/L Potassium 5.0 (3.5-5.1) mmol/L Chloride 92 L (98-107) mmol/L Carbon Dioxide 22 (21-32) mmol/L Anion Gap 20.0 H (7-13) mEq/L BUN 93 H (7-18) mg/dL Creatinine 2.71 H (0.55-1.02) mg/dL Est Cr Clr Drug Dosing TNP Estimated GFR (MDRD) 17 BUN/Creatinine Ratio 34.3 (No establ ref range) Glucose 421 H* (70-99) mg/dL Calcium 9.0 (8.5-10.1) mg/dL Total Bilirubin 1.1 H (0.2-1.0) mg/dL AST 79 H (15-37) U/L ALT 67 H (14-59) U/L Alkaline Phosphatase 54 (46-116) U/L Troponin I High Sens 11 (<=51) pg/mL Total Protein 6.2 L (6.4-8.2) g/dL Albumin 3.2 L (3.4-5.0) g/dL Globulin 3.0 Albumin/Globulin Ratio 1.07 Urine Color (YELLOW) Urine Appearance (CLEAR) Urine pH (5.0-9.0) Ur Specific Crawford (1.005-1.030) Urine Protein (NEGATIVE) Urine Glucose (UA) (NEGATIVE) Urine Ketones (NEGATIVE) Urine Occult Blood (NEGATIVE) Urine Nitrite (NEGATIVE) Urine Bilirubin (NEGATIVE) Urine Urobilinogen (0.2-1.0) mg/dL Ur Leukocyte Esterase (NEGATIVE) Urine RBC (0-5) /HPF Urine WBC (0-5/HPF) /HPF Ur Epithelial Cells (NOT SEEN) /HPF Amorphous Sediment (NOT SEEN) /HPF Urine Bacteria (0-FEW/HPF) /HPF Urine Mucus (NOT SEEN) /LPF Urine Opiates Screen (NEGATIVE) Ur Oxycodone Screen (NEGATIVE) Urine Methadone Screen (NEGATIVE) Ur Barbiturates Screen (NEGATIVE) U Tricyclic Antidepress (NEGATIVE) Ur Phencyclidine Scrn (NEGATIVE) Ur Amphetamine Screen (NEGATIVE) U Methamphetamines Scrn (NEGATIVE) Urine MDMA Screen (NEGATIVE) U Benzodiazepines Scrn (NEGATIVE) Urine Cocaine Screen (NEGATIVE) U Marijuana (THC) Screen (NEGATIVE) Ethyl Alcohol < 3 (0) mg/dL SARS-CoV-2 RNA (ÁNGELA) (NEGATIVE) 04/03/21 04/03/21 04/03/21 Range/Units 19:43 19:59 19:59 WBC (5.0-10.0) 10^3/uL RBC (4.2-5.4) 10^6/uL Hgb (12.0-16.0) g/dL Hct (37.0-47.0) % MCV (80-100) fL MCH (27.0-34.0) pg MCHC (33.0-35.0) g/dL Plt Count (150-450) 10^3/uL Neut % (Auto) (42.2-75.2) % Lymph % (Auto) (20.5-50.1) % Pender % (Auto) (2-8) % Eos % (Auto) (1.0-3.0) % Baso % (Auto) (0.0-1.0) % Add Manual Diff Neutrophils % (Manual) (42-75) % Band Neutrophils % % Lymphocytes % (Manual) (20-50) % Monocytes % (Manual) (2-8) % PT (9.0-12.0) SEC INR (0.9-1.2) APTT (22.0-34.0) SEC Sodium (136-145) mmol/L Potassium (3.5-5.1) mmol/L Chloride (98-107) mmol/L Carbon Dioxide (21-32) mmol/L Anion Gap (7-13) mEq/L BUN (7-18) mg/dL Creatinine (0.55-1.02) mg/dL Est Cr Clr Drug Dosing Estimated GFR (MDRD) BUN/Creatinine Ratio (No establ ref range) Glucose (70-99) mg/dL Calcium (8.5-10.1) mg/dL Total Bilirubin (0.2-1.0) mg/dL AST (15-37) U/L ALT (14-59) U/L Alkaline Phosphatase (46-116) U/L Troponin I High Sens (<=51) pg/mL Total Protein (6.4-8.2) g/dL Albumin (3.4-5.0) g/dL Globulin Albumin/Globulin Ratio Urine Color Yellow (YELLOW) Urine Appearance Turbid (CLEAR) Urine pH 8.5 (5.0-9.0) Ur Specific Crawford 1.020 (1.005-1.030) Urine Protein Negative (NEGATIVE) Urine Glucose (UA) 100 H (NEGATIVE) Urine Ketones Negative (NEGATIVE) Urine Occult Blood Negative (NEGATIVE) Urine Nitrite Positive H (NEGATIVE) Urine Bilirubin Negative (NEGATIVE) Urine Urobilinogen 0.2 (0.2-1.0) mg/dL Ur Leukocyte Esterase Small H (NEGATIVE) Urine RBC 0-5 (0-5) /HPF Urine WBC 30-40 H (0-5/HPF) /HPF Ur Epithelial Cells Few (NOT SEEN) /HPF Amorphous Sediment Moderate H (NOT SEEN) /HPF Urine Bacteria Many H (0-FEW/HPF) /HPF Urine Mucus Few H (NOT SEEN) /LPF Urine Opiates Screen Negative (NEGATIVE) Ur Oxycodone Screen Negative (NEGATIVE) Urine Methadone Screen Negative (NEGATIVE) Ur Barbiturates Screen Negative (NEGATIVE) U Tricyclic Antidepress Negative (NEGATIVE) Ur Phencyclidine Scrn Negative (NEGATIVE) Ur Amphetamine Screen Negative (NEGATIVE) U Methamphetamines Scrn Negative (NEGATIVE) Urine MDMA Screen Negative (NEGATIVE) U Benzodiazepines Scrn Negative (NEGATIVE) Urine Cocaine Screen Negative (NEGATIVE) U Marijuana (THC) Screen Negative (NEGATIVE) Ethyl Alcohol (0) mg/dL SARS-CoV-2 RNA (ÁNGELA) Negative (NEGATIVE) Result Diagrams: 04/03/21 18:02 04/03/21 18:02 Problem List Initiated/Reviewed/Updated: No Orders Last 24hrs: Active Orders 24 hr Category Date Time Status Admission Diagnosis [ADT] Urgent ADT 04/03/21 20:48 Ordered Admission Status [Patient Status] [ADT] Routine ADT 04/03/21 21:27 Active Patient Status [ADT] Routine ADT 04/03/21 22:04 Ordered Blood Glucose Check, Bedside [RC] WITHMEALSANDBED Care 04/03/21 22:04 Ordered Oxygen Therapy [RC] PRN Care 04/03/21 22:04 Ordered Up With Assistance [RC] ASDIRECTED Care 04/03/21 22:04 Ordered VTE/DVT Education [RC] PER UNIT ROUTINE Care 04/03/21 22:04 Ordered Vital Signs [RC] Q4H Care 04/03/21 22:04 Ordered OT Evaluation and Treatment [CONS] Routine Cons 04/03/21 22:04 Ordered PT Evaluation and Treatment [CONS] Routine Cons 04/03/21 22:04 Ordered Consistent Carbohydrate Diet [DIET] Diet 04/04/21 Breakfast Ordered BASIC METABOLIC PANEL,BMP [CHEM] AM Lab 04/04/21 05:11 Ordered CBC W/O DIFF,HEMOGRAM [HEME] AM Lab 04/04/21 05:11 Ordered CULTURE BLOOD [BC] Stat Lab 04/03/21 20:47 Received CULTURE URINE [RM] Stat Lab 04/03/21 19:59 Received Acetaminophen [TylenoL] Med 04/03/21 22:04 Ordered 650 mg PO Q4H PRN Ascorbic Acid [Vitamin C with Alba Hips] Med 04/04/21 09:00 Ordered 1,000 mg PO DAILY Aspirin [Halfprin] Med 04/04/21 09:00 Ordered 81 mg PO DAILY Calcitriol [Calcitriol] Med 04/04/21 09:00 Ordered 0.25 mcg PO DAILY Dextrose 50% in Water Med 04/03/21 22:13 Ordered 50 ml IVPUSH Q15M PRN Docusate Sodium [Colace] Med 04/03/21 22:04 Ordered 100 mg PO BID PRN Docusate Sodium/Sennosides [Senna Plus] Med 04/03/21 22:04 Ordered 1 tab PO BEDTIME PRN Enoxaparin [Lovenox] Med 04/05/21 09:00 Ordered 40 mg SUBCUT DAILY FLUoxetine [PROzac] Med 04/04/21 09:00 Ordered 20 mg PO TID Furosemide [Lasix] Med 04/04/21 09:00 Ordered 60 mg PO TID Gabapentin [Neurontin] Med 04/04/21 21:00 Ordered 300 mg PO BEDTIME Glucagon,Human Recombinant [GlucaGen] Med 04/03/21 22:13 Ordered 1 mg IM Q15M PRN Insulin Lispro [HumaLOG] Med 04/04/21 08:00 Ordered See Protocol SUBCUT WITHMEALSANDBED Isosorbide Mononitrate [Imdur] Med 04/04/21 09:00 Ordered 30 mg PO DAILY Metoprolol Tartrate Med 04/03/21 22:30 Ordered 100 mg PO BID Montelukast [Singulair] Med 04/04/21 21:00 Ordered 10 mg PO BEDTIME Ondansetron [Zofran] Med 04/03/21 22:04 Ordered 4 mg IVPUSH Q4H PRN Potassium Chloride [Potassium Chloride] Med 04/04/21 09:00 Ordered 20 meq PO DAILY Simvastatin [Zocor] Med 04/04/21 21:00 Ordered 40 mg PO BEDTIME Sodium Chloride 0.9% [Saline Flush] Med 04/03/21 17:46 Active 10 ml FLUSH ASDIRECTED PRN Spironolactone [Aldactone] Med 04/04/21 09:00 Ordered 25 mg PO DAILY allopurinoL [Zyloprim] Med 04/04/21 09:00 Ordered 100 mg PO DAILY amLODIPine [Norvasc] Med 04/04/21 09:00 Ordered 5 mg PO DAILY bisacodyL [Dulcolax] Med 04/03/21 22:04 Ordered 5 mg PO DAILY PRN cefTRIAXone [Rocephin] Med 04/04/21 22:15 Ordered 1 gm IM Q24H glipiZIDE [Glucotrol] Med 04/04/21 09:00 Ordered 5 mg PO DAILY Peripheral IV Insertion Adult [OM.PC] Stat Oth 04/03/21 17:48 Ordered Resuscitation Status Routine Resus Stat 04/03/21 22:04 Ordered Medication Orders Acetaminophen (Acetaminophen 325 Mg Tab) 650 mg PO Q4H PRN PRN Reason: Pain (Mild 1-3)/fever Allopurinol (Allopurinol 100 Mg Tab) 100 mg PO DAILY [facility] Amlodipine Besylate (Amlodipine 5 Mg Tab) 5 mg PO DAILY [facility] Aspirin (Aspirin 81 Mg Tab.Ec) 81 mg PO DAILY [facility] Bisacodyl (Bisacodyl 5 Mg Tab) 5 mg PO DAILY PRN PRN Reason: Constipation Ceftriaxone Sodium (Ceftriaxone 1 Gm Vial) 1 gm IM Q24H [facility] Dextrose/Water (50% Dextrose In Water 50 Ml Syringe) 50 ml IVPUSH Q15M PRN PRN Reason: Hypoglycemia Docusate Sodium (Docusate Sodium 100 Mg Cap) 100 mg PO BID PRN PRN Reason: Constipation Enoxaparin Sodium (Enoxaparin 30 Mg/0.3 Ml Syringe) 30 mg SUBCUT DAILY [facility] Fluoxetine HCl (Fluoxetine 10 Mg Cap) 20 mg PO TID [facility] Furosemide (Furosemide 40 Mg Tab) 60 mg PO TID [facility] Gabapentin (Gabapentin 300 Mg Cap) 300 mg PO BEDTIME [facility] Glipizide (Glipizide 5 Mg Tab) 5 mg PO DAILY [facility] Glucagon (Glucagon,Human Recombinant 1 Mg Vial) 1 mg IM Q15M PRN PRN Reason: Hypoglycemia Insulin Human Lispro (Insulin Lispro 100 Units/Ml 3 Ml Vial) 0 unit SUBCUT WITHMEALSANDBED [facility]; Protocol Isosorbide Mononitrate (Isosorbide Mononitrate 30 Mg Tab.Er) 30 mg PO DAILY [facility] Montelukast Sodium (Montelukast 10 Mg Tab) 10 mg PO BEDTIME [facility] Non-Formulary Medication (Metoprolol Tartrate) 100 mg PO BID [facility] Non-Formulary Medication (Ascorbic Acid [Vitamin C With Alba Hips]) 1,000 mg PO DAILY [facility] Non-Formulary Medication (Calcitriol [Calcitriol]) 0.25 mcg PO DAILY [facility] Non-Formulary Medication (Potassium Chloride [Potassium Chloride]) 20 meq PO DAILY [facility] Ondansetron HCl (Ondansetron 4 Mg/2 Ml Sdv) 4 mg IVPUSH Q4H PRN PRN Reason: Nausea/Vomiting Senna/Docusate Sodium (Docusate Sodium/Sennosides 50-8.6 Mg Tab) 1 tab PO BEDTIME PRN PRN Reason: Constipation Simvastatin (Simvastatin 40 Mg Tab) 40 mg PO BEDTIME [facility] Sodium Chloride (Sodium Chloride 0.9% 10 Ml Syringe) 10 ml FLUSH ASDIRECTED PRN PRN Reason: Keep Vein Open Last Admin: 04/03/21 20:39 Dose: 10 ml Documented by: KISHORE Spironolactone (Spironolactone 25 Mg Tab) 25 mg PO DAILY [facility] Assessment/Plan Comment:: Patient arrived to ED by Ambulance after a ground level fall at home. Patient states that she hit the back of her head but did not loose consciousness. She has a skin tear on the right arm and pain in the left pelvis. Patient lives home alone and reports that she has had multiple frequent falls in the past few weeks. in fact she fell on Saturday. She denies neck pain, chest pain, nausea, vomiting or shortness of breath. Multiple falls: multifactorial spinal stenosis Obesity, Chronic lower ext edema Old RT ankle injury ( with chronic brace). UTI and hyponatremia: less likely to be the main factors. DM type 2, recently stopped Insulin to oral medications. CKD stage 4 Needs PT/OT Pt states that she is scheduled for back surgery in Apr. Ceftiaxone Repeat Na DVT prophylaxis: stat Lovenox after 48 hrs due to wide spread ecchymosis. DNR/DNI
[2021-04-03] MEDS ORDERED: Gabapentin 300 MG Cap PO ONE (22:50)
[2021-04-04 07:23] LABS: ANION GAP 14.2 mEq/L (7-13)
[2021-04-04] MEDS ORDERED: Glucagon,Human Recombinant 1 MG Vial IM PRN (08:12)
[2021-04-04] MEDS ORDERED: 50% Dextrose in Water 50 ML Syringe IVPUSH PRN (08:12)
[2021-04-04] MEDS ORDERED: Insulin Lispro 100 Units/ML 3 ML Vial SUBCUT ONE (08:30)
[2021-04-04] MEDS ORDERED: Enoxaparin 30 MG/0.3 ML Syringe SUBCUT SCH (09:00)
[2021-04-04] MEDS: Ascorbic Acid 500 MG Tab PO SCH (09:32)
[2021-04-04] MEDS: Isosorbide Mononitrate 30 MG Tab.ER PO SCH (09:32)
[2021-04-04] MEDS: Allopurinol 100 MG Tab PO SCH (09:33)
[2021-04-04] MEDS: Calcitriol 0.25 MCG Cap PO SCH (09:33)
[2021-04-04] MEDS: Furosemide 40 MG Tab PO SCH ×3 (09:34→21:04)
[2021-04-04] MEDS: glipiZIDE 5 MG Tab PO SCH (09:34)
[2021-04-04] MEDS: Potassium Chloride 10 MEQ Tab.ER PO SCH (09:35)
[2021-04-04] MEDS: FLUoxetine 10 MG Cap PO SCH ×3 (09:35→21:05)
[2021-04-04] MEDS: Spironolactone 25 MG Tab PO SCH (09:35)
[2021-04-04] MEDS: Metoprolol Tartrate 50 MG Tab PO SCH ×2 (09:35→21:04)
[2021-04-04] MEDS: Aspirin 81 MG Tab.EC PO SCH (09:35)
[2021-04-04] MEDS: amLODIPine 5 MG Tab PO SCH (09:36)
[2021-04-04] MEDS: Insulin Lispro 100 Units/ML 3 ML Vial SUBCUT SCH ×4 (09:36→21:30)
--- NOTE | 2021-04-04 11:25 | PCM.PN ---
- General Info Date of Service: 04/04/21 Functional Status: Reports: Pain Controlled, Tolerating Diet - Review of Systems General: Denies: Fever Pulmonary: Denies: Shortness of Breath Cardiovascular: Denies: Chest Pain Gastrointestinal: Denies: Abdominal Pain Genitourinary: Denies: Dysuria - Patient Data Vitals - Most Recent: Last Vital Signs Temp 98.8 F 04/04/21 08:00 Pulse 69 04/04/21 09:35 Resp 24 H 04/04/21 08:00 BP 170/70 H 04/04/21 09:36 Pulse Ox 96 04/04/21 08:00 Weight - Most Recent: 254 lb 4.8 oz I&O - Last 24 Hours: Intake & Output 04/03/21 04/04/21 04/04/21 22:59 06:59 14:59 Intake Total 400 600 Balance 400 600 Lab Results Last 24 Hours: Laboratory Results - last 24 hr 04/03/21 04/03/21 04/03/21 Range/Units 18:02 18:02 18:02 WBC 21.6 H (5.0-10.0) 10^3/uL RBC 4.51 (4.2-5.4) 10^6/uL Hgb 12.8 D (12.0-16.0) g/dL Hct 37.1 (37.0-47.0) % MCV 82.3 D (80-100) fL MCH 28.4 (27.0-34.0) pg MCHC 34.5 (33.0-35.0) g/dL Plt Count 369 D (150-450) 10^3/uL Neut % (Auto) 82.0 H (42.2-75.2) % Lymph % (Auto) 7.8 L (20.5-50.1) % [place] % (Auto) 9.9 H (2-8) % Eos % (Auto) 0.0 L (1.0-3.0) % Baso % (Auto) 0.3 (0.0-1.0) % Add Manual Diff Yes Neutrophils % (Manual) 81 H (42-75) % Band Neutrophils % 2 % Lymphocytes % (Manual) 8 L (20-50) % Monocytes % (Manual) 9 H (2-8) % PT 10.6 (9.0-12.0) SEC INR 1.1 (0.9-1.2) APTT 19.1 L (22.0-34.0) SEC Sodium 129 L (136-145) mmol/L Potassium 5.0 (3.5-5.1) mmol/L Chloride 92 L (98-107) mmol/L Carbon Dioxide 22 (21-32) mmol/L Anion Gap 20.0 H (7-13) mEq/L BUN 93 H (7-18) mg/dL Creatinine 2.71 H (0.55-1.02) mg/dL Est Cr Clr Drug Dosing TNP Estimated GFR (MDRD) 17 BUN/Creatinine Ratio 34.3 (No establ ref range) Glucose 421 H* (70-99) mg/dL POC Glucose (70-99) mg/dL Calcium 9.0 (8.5-10.1) mg/dL Total Bilirubin 1.1 H (0.2-1.0) mg/dL AST 79 H (15-37) U/L ALT 67 H (14-59) U/L Alkaline Phosphatase 54 (46-116) U/L Troponin I High Sens 11 (<=51) pg/mL Total Protein 6.2 L (6.4-8.2) g/dL Albumin 3.2 L (3.4-5.0) g/dL Globulin 3.0 Albumin/Globulin Ratio 1.07 Urine Color (YELLOW) Urine Appearance (CLEAR) Urine pH (5.0-9.0) Ur Specific [place] (1.005-1.030) Urine Protein (NEGATIVE) Urine Glucose (UA) (NEGATIVE) Urine Ketones (NEGATIVE) Urine Occult Blood (NEGATIVE) Urine Nitrite (NEGATIVE) Urine Bilirubin (NEGATIVE) Urine Urobilinogen (0.2-1.0) mg/dL Ur Leukocyte Esterase (NEGATIVE) Urine RBC (0-5) /HPF Urine WBC (0-5/HPF) /HPF Ur Epithelial Cells (NOT SEEN) /HPF Amorphous Sediment (NOT SEEN) /HPF Urine Bacteria (0-FEW/HPF) /HPF Urine Mucus (NOT SEEN) /LPF Urine Opiates Screen (NEGATIVE) Ur Oxycodone Screen (NEGATIVE) Urine Methadone Screen (NEGATIVE) Ur Barbiturates Screen (NEGATIVE) U Tricyclic Antidepress (NEGATIVE) Ur Phencyclidine Scrn (NEGATIVE) Ur Amphetamine Screen (NEGATIVE) U Methamphetamines Scrn (NEGATIVE) Urine MDMA Screen (NEGATIVE) U Benzodiazepines Scrn (NEGATIVE) Urine Cocaine Screen (NEGATIVE) U Marijuana (THC) Screen (NEGATIVE) Ethyl Alcohol < 3 (0) mg/dL SARS-CoV-2 RNA (ÁNGELA) (NEGATIVE) 04/03/21 04/03/21 04/03/21 Range/Units 19:43 19:59 19:59 WBC (5.0-10.0) 10^3/uL RBC (4.2-5.4) 10^6/uL Hgb (12.0-16.0) g/dL Hct (37.0-47.0) % MCV (80-100) fL MCH (27.0-34.0) pg MCHC (33.0-35.0) g/dL Plt Count (150-450) 10^3/uL Neut % (Auto) (42.2-75.2) % Lymph % (Auto) (20.5-50.1) % [place] % (Auto) (2-8) % Eos % (Auto) (1.0-3.0) % Baso % (Auto) (0.0-1.0) % Add Manual Diff Neutrophils % (Manual) (42-75) % Band Neutrophils % % Lymphocytes % (Manual) (20-50) % Monocytes % (Manual) (2-8) % PT (9.0-12.0) SEC INR (0.9-1.2) APTT (22.0-34.0) SEC Sodium (136-145) mmol/L Potassium (3.5-5.1) mmol/L Chloride (98-107) mmol/L Carbon Dioxide (21-32) mmol/L Anion Gap (7-13) mEq/L BUN (7-18) mg/dL Creatinine (0.55-1.02) mg/dL Est Cr Clr Drug Dosing Estimated GFR (MDRD) BUN/Creatinine Ratio (No establ ref range) Glucose (70-99) mg/dL POC Glucose (70-99) mg/dL Calcium (8.5-10.1) mg/dL Total Bilirubin (0.2-1.0) mg/dL AST (15-37) U/L ALT (14-59) U/L Alkaline Phosphatase (46-116) U/L Troponin I High Sens (<=51) pg/mL Total Protein (6.4-8.2) g/dL Albumin (3.4-5.0) g/dL Globulin Albumin/Globulin Ratio Urine Color Yellow (YELLOW) Urine Appearance Turbid (CLEAR) Urine pH 8.5 (5.0-9.0) Ur Specific [place] 1.020 (1.005-1.030) Urine Protein Negative (NEGATIVE) Urine Glucose (UA) 100 H (NEGATIVE) Urine Ketones Negative (NEGATIVE) Urine Occult Blood Negative (NEGATIVE) Urine Nitrite Positive H (NEGATIVE) Urine Bilirubin Negative (NEGATIVE) Urine Urobilinogen 0.2 (0.2-1.0) mg/dL Ur Leukocyte Esterase Small H (NEGATIVE) Urine RBC 0-5 (0-5) /HPF Urine WBC 30-40 H (0-5/HPF) /HPF Ur Epithelial Cells Few (NOT SEEN) /HPF Amorphous Sediment Moderate H (NOT SEEN) /HPF Urine Bacteria Many H (0-FEW/HPF) /HPF Urine Mucus Few H (NOT SEEN) /LPF Urine Opiates Screen Negative (NEGATIVE) Ur Oxycodone Screen Negative (NEGATIVE) Urine Methadone Screen Negative (NEGATIVE) Ur Barbiturates Screen Negative (NEGATIVE) U Tricyclic Antidepress Negative (NEGATIVE) Ur Phencyclidine Scrn Negative (NEGATIVE) Ur Amphetamine Screen Negative (NEGATIVE) U Methamphetamines Scrn Negative (NEGATIVE) Urine MDMA Screen Negative (NEGATIVE) U Benzodiazepines Scrn Negative (NEGATIVE) Urine Cocaine Screen Negative (NEGATIVE) U Marijuana (THC) Screen Negative (NEGATIVE) Ethyl Alcohol (0) mg/dL SARS-CoV-2 RNA (ÁNGELA) Negative (NEGATIVE) 04/04/21 04/04/21 04/04/21 Range/Units 05:55 05:55 07:53 WBC 10.8 H (5.0-10.0) 10^3/uL RBC 3.68 L (4.2-5.4) 10^6/uL Hgb 10.4 L D (12.0-16.0) g/dL Hct 30.8 L (37.0-47.0) % MCV 83.7 (80-100) fL MCH 28.3 (27.0-34.0) pg MCHC 33.8 (33.0-35.0) g/dL Plt Count 263 D (150-450) 10^3/uL Neut % (Auto) (42.2-75.2) % Lymph % (Auto) (20.5-50.1) % [place] % (Auto) (2-8) % Eos % (Auto) (1.0-3.0) % Baso % (Auto) (0.0-1.0) % Add Manual Diff Neutrophils % (Manual) (42-75) % Band Neutrophils % % Lymphocytes % (Manual) (20-50) % Monocytes % (Manual) (2-8) % PT (9.0-12.0) SEC INR (0.9-1.2) APTT (22.0-34.0) SEC Sodium 128 L (136-145) mmol/L Potassium 4.2 (3.5-5.1) mmol/L Chloride 91 L (98-107) mmol/L Carbon Dioxide 27 (21-32) mmol/L Anion Gap 14.2 H (7-13) mEq/L BUN 87 H (7-18) mg/dL Creatinine 2.77 H (0.55-1.02) mg/dL Est Cr Clr Drug Dosing 15.37 Estimated GFR (MDRD) 17 BUN/Creatinine Ratio (No establ ref range) Glucose 448 H* (70-99) mg/dL POC Glucose 421 H* (70-99) mg/dL Calcium 8.6 (8.5-10.1) mg/dL Total Bilirubin (0.2-1.0) mg/dL AST (15-37) U/L ALT (14-59) U/L Alkaline Phosphatase (46-116) U/L Troponin I High Sens (<=51) pg/mL Total Protein (6.4-8.2) g/dL Albumin (3.4-5.0) g/dL Globulin Albumin/Globulin Ratio Urine Color (YELLOW) Urine Appearance (CLEAR) Urine pH (5.0-9.0) Ur Specific [place] (1.005-1.030) Urine Protein (NEGATIVE) Urine Glucose (UA) (NEGATIVE) Urine Ketones (NEGATIVE) Urine Occult Blood (NEGATIVE) Urine Nitrite (NEGATIVE) Urine Bilirubin (NEGATIVE) Urine Urobilinogen (0.2-1.0) mg/dL Ur Leukocyte Esterase (NEGATIVE) Urine RBC (0-5) /HPF Urine WBC (0-5/HPF) /HPF Ur Epithelial Cells (NOT SEEN) /HPF Amorphous Sediment (NOT SEEN) /HPF Urine Bacteria (0-FEW/HPF) /HPF Urine Mucus (NOT SEEN) /LPF Urine Opiates Screen (NEGATIVE) Ur Oxycodone Screen (NEGATIVE) Urine Methadone Screen (NEGATIVE) Ur Barbiturates Screen (NEGATIVE) U Tricyclic Antidepress (NEGATIVE) Ur Phencyclidine Scrn (NEGATIVE) Ur Amphetamine Screen (NEGATIVE) U Methamphetamines Scrn (NEGATIVE) Urine MDMA Screen (NEGATIVE) U Benzodiazepines Scrn (NEGATIVE) Urine Cocaine Screen (NEGATIVE) U Marijuana (THC) Screen (NEGATIVE) Ethyl Alcohol (0) mg/dL SARS-CoV-2 RNA (ÁNGELA) (NEGATIVE) Med Orders - Current: Current Medications Acetaminophen (Acetaminophen 325 Mg Tab) 650 mg PO Q4H PRN PRN Reason: Pain (Mild 1-3)/fever Allopurinol (Allopurinol 100 Mg Tab) 100 mg PO DAILY [facility] Last Admin: 04/04/21 09:33 Dose: 100 mg Documented by: Amlodipine Besylate (Amlodipine 5 Mg Tab) 5 mg PO DAILY [facility] Last Admin: 04/04/21 09:36 Dose: 5 mg Documented by: Ascorbic Acid (Ascorbic Acid 500 Mg Tab) 1,000 mg PO DAILY [facility] Last Admin: 04/04/21 09:32 Dose: 1,000 mg Documented by: Aspirin (Aspirin 81 Mg Tab.Ec) 81 mg PO DAILY [facility] Last Admin: 04/04/21 09:35 Dose: 81 mg Documented by: Bisacodyl (Bisacodyl 5 Mg Tab) 5 mg PO DAILY PRN PRN Reason: Constipation Calcitriol (Calcitriol 0.25 Mcg Cap) 0.25 mcg PO DAILY [facility] Last Admin: 04/04/21 09:33 Dose: 0.25 mcg Documented by: Dextrose/Water (50% Dextrose In Water 50 Ml Syringe) 50 ml IVPUSH Q15M PRN PRN Reason: Hypoglycemia Docusate Sodium (Docusate Sodium 100 Mg Cap) 100 mg PO BID PRN PRN Reason: Constipation Enoxaparin Sodium (Enoxaparin 30 Mg/0.3 Ml Syringe) 30 mg SUBCUT DAILY [facility] Fluoxetine HCl (Fluoxetine 10 Mg Cap) 20 mg PO TID [facility] Last Admin: 04/04/21 09:35 Dose: 20 mg Documented by: Furosemide (Furosemide 40 Mg Tab) 60 mg PO TID [facility] Last Admin: 04/04/21 09:34 Dose: 60 mg Documented by: Gabapentin (Gabapentin 300 Mg Cap) 300 mg PO BEDTIME [facility] Glipizide (Glipizide 5 Mg Tab) 5 mg PO DAILY [facility] Last Admin: 04/04/21 09:34 Dose: 5 mg Documented by: Glucagon (Glucagon,Human Recombinant 1 Mg Vial) 1 mg IM Q15M PRN PRN Reason: Hypoglycemia Ceftriaxone Sodium 1 gm/ (Sodium Chloride) 50 mls @ 100 mls/hr IV Q24H [facility] Insulin Human Lispro (Insulin Lispro 100 Units/Ml 3 Ml Vial) 0 unit SUBCUT WITHMEALSANDBED [facility]; Protocol Last Admin: 04/04/21 09:36 Dose: Not Given Documented by: Insulin Lispro Protam/Lispro Human (Insulin Lispro Protamine/Lispro 75-25 100 Units/Ml 10 Ml Vial) 32 unit SUBCUT BIDMEALS [facility] Isosorbide Mononitrate (Isosorbide Mononitrate 30 Mg Tab.Er) 30 mg PO DAILY [facility] Last Admin: 04/04/21 09:32 Dose: 30 mg Documented by: Metoprolol Tartrate (Metoprolol Tartrate 50 Mg Tab) 100 mg PO BID [facility] Last Admin: 04/04/21 09:35 Dose: 100 mg Documented by: Montelukast Sodium (Montelukast 10 Mg Tab) 10 mg PO BEDTIME [facility] Ondansetron HCl (Ondansetron 4 Mg/2 Ml Sdv) 4 mg IVPUSH Q4H PRN PRN Reason: Nausea/Vomiting Potassium Chloride (Potassium Chloride 10 Meq Tab.Er) 20 meq PO DAILY [facility] Last Admin: 04/04/21 09:35 Dose: 20 meq Documented by: Senna/Docusate Sodium (Docusate Sodium/Sennosides 50-8.6 Mg Tab) 1 tab PO BEDTIME PRN PRN Reason: Constipation Simvastatin (Simvastatin 40 Mg Tab) 40 mg PO BEDTIME [facility] Sodium Chloride (Sodium Chloride 0.9% 10 Ml Syringe) 10 ml FLUSH ASDIRECTED PRN PRN Reason: Keep Vein Open Last Admin: 04/03/21 20:39 Dose: 10 ml Documented by: Spironolactone (Spironolactone 25 Mg Tab) 25 mg PO DAILY [facility] Last Admin: 04/04/21 09:35 Dose: 25 mg Documented by: Discontinued Medications Ceftriaxone Sodium (Ceftriaxone 1 Gm Vial) 1 gm IM Q24H [facility] Diphtheria/Tetanus/Acell Pertussis (Diphtheria,Pertussis(Acell),Tetanus Vaccine 0.5 Ml Syringe) 0.5 ml IM .ONCE ONE Stop: 04/03/21 17:54 Last Admin: 04/03/21 20:04 Dose: 0.5 ml Documented by: Enoxaparin Sodium (Enoxaparin 30 Mg/0.3 Ml Syringe) 30 mg SUBCUT DAILY [facility] Gabapentin (Gabapentin 300 Mg Cap) 300 mg PO ONETIME ONE Stop: 04/03/21 22:51 Last Admin: 04/03/21 23:21 Dose: 300 mg Documented by: Ceftriaxone Sodium 1 gm/ (Sodium Chloride) 50 mls @ 100 mls/hr IV ONETIME ONE Stop: 04/03/21 20:49 Last Admin: 04/03/21 20:38 Dose: 100 mls/hr Documented by: Insulin Human Lispro (Insulin Lispro 100 Units/Ml 3 Ml Vial) 10 unit SUBCUT ONETIME ONE Stop: 04/04/21 08:31 Last Admin: 04/04/21 09:36 Dose: 10 units Documented by: Iopamidol (Iopamidol 612 Mg/Ml 100 Ml Bottle) 100 ml IVPUSH ONETIME ONE Stop: 04/03/21 18:17 Last Admin: 04/03/21 18:54 Dose: 100 ml Documented by: - Exam Quality Assessment: No: Supplemental Oxygen General: Alert, Oriented HEENT: EOMI Lungs: Clear to Auscultation Cardiovascular: Regular Rate, Regular Rhythm GI/Abdominal Exam: Normal Bowel Sounds, Soft Extremities: Other (brace to RT ankle) Skin: Ecchymosis (an changed from yestarday) Neurological: No New Focal Deficit Psy/Mental Status: Alert - Patient Data Lab Results Last 24 hrs: Laboratory Results - last 24 hr 04/03/21 04/03/21 04/03/21 Range/Units 18:02 18:02 18:02 WBC 21.6 H (5.0-10.0) 10^3/uL RBC 4.51 (4.2-5.4) 10^6/uL Hgb 12.8 D (12.0-16.0) g/dL Hct 37.1 (37.0-47.0) % MCV 82.3 D (80-100) fL MCH 28.4 (27.0-34.0) pg MCHC 34.5 (33.0-35.0) g/dL Plt Count 369 D (150-450) 10^3/uL Neut % (Auto) 82.0 H (42.2-75.2) % Lymph % (Auto) 7.8 L (20.5-50.1) % [place] % (Auto) 9.9 H (2-8) % Eos % (Auto) 0.0 L (1.0-3.0) % Baso % (Auto) 0.3 (0.0-1.0) % Add Manual Diff Yes Neutrophils % (Manual) 81 H (42-75) % Band Neutrophils % 2 % Lymphocytes % (Manual) 8 L (20-50) % Monocytes % (Manual) 9 H (2-8) % PT 10.6 (9.0-12.0) SEC INR 1.1 (0.9-1.2) APTT 19.1 L (22.0-34.0) SEC Sodium 129 L (136-145) mmol/L Potassium 5.0 (3.5-5.1) mmol/L Chloride 92 L (98-107) mmol/L Carbon Dioxide 22 (21-32) mmol/L Anion Gap 20.0 H (7-13) mEq/L BUN 93 H (7-18) mg/dL Creatinine 2.71 H (0.55-1.02) mg/dL Est Cr Clr Drug Dosing TNP Estimated GFR (MDRD) 17 BUN/Creatinine Ratio 34.3 (No establ ref range) Glucose 421 H* (70-99) mg/dL POC Glucose (70-99) mg/dL Calcium 9.0 (8.5-10.1) mg/dL Total Bilirubin 1.1 H (0.2-1.0) mg/dL AST 79 H (15-37) U/L ALT 67 H (14-59) U/L Alkaline Phosphatase 54 (46-116) U/L Troponin I High Sens 11 (<=51) pg/mL Total Protein 6.2 L (6.4-8.2) g/dL Albumin 3.2 L (3.4-5.0) g/dL Globulin 3.0 Albumin/Globulin Ratio 1.07 Urine Color (YELLOW) Urine Appearance (CLEAR) Urine pH (5.0-9.0) Ur Specific [place] (1.005-1.030) Urine Protein (NEGATIVE) Urine Glucose (UA) (NEGATIVE) Urine Ketones (NEGATIVE) Urine Occult Blood (NEGATIVE) Urine Nitrite (NEGATIVE) Urine Bilirubin (NEGATIVE) Urine Urobilinogen (0.2-1.0) mg/dL Ur Leukocyte Esterase (NEGATIVE) Urine RBC (0-5) /HPF Urine WBC (0-5/HPF) /HPF Ur Epithelial Cells (NOT SEEN) /HPF Amorphous Sediment (NOT SEEN) /HPF Urine Bacteria (0-FEW/HPF) /HPF Urine Mucus (NOT SEEN) /LPF Urine Opiates Screen (NEGATIVE) Ur Oxycodone Screen (NEGATIVE) Urine Methadone Screen (NEGATIVE) Ur Barbiturates Screen (NEGATIVE) U Tricyclic Antidepress (NEGATIVE) Ur Phencyclidine Scrn (NEGATIVE) Ur Amphetamine Screen (NEGATIVE) U Methamphetamines Scrn (NEGATIVE) Urine MDMA Screen (NEGATIVE) U Benzodiazepines Scrn (NEGATIVE) Urine Cocaine Screen (NEGATIVE) U Marijuana (THC) Screen (NEGATIVE) Ethyl Alcohol < 3 (0) mg/dL SARS-CoV-2 RNA (ÁNGELA) (NEGATIVE) 04/03/21 04/03/21 04/03/21 Range/Units 19:43 19:59 19:59 WBC (5.0-10.0) 10^3/uL RBC (4.2-5.4) 10^6/uL Hgb (12.0-16.0) g/dL Hct (37.0-47.0) % MCV (80-100) fL MCH (27.0-34.0) pg MCHC (33.0-35.0) g/dL Plt Count (150-450) 10^3/uL Neut % (Auto) (42.2-75.2) % Lymph % (Auto) (20.5-50.1) % [place] % (Auto) (2-8) % Eos % (Auto) (1.0-3.0) % Baso % (Auto) (0.0-1.0) % Add Manual Diff Neutrophils % (Manual) (42-75) % Band Neutrophils % % Lymphocytes % (Manual) (20-50) % Monocytes % (Manual) (2-8) % PT (9.0-12.0) SEC INR (0.9-1.2) APTT (22.0-34.0) SEC Sodium (136-145) mmol/L Potassium (3.5-5.1) mmol/L Chloride (98-107) mmol/L Carbon Dioxide (21-32) mmol/L Anion Gap (7-13) mEq/L BUN (7-18) mg/dL Creatinine (0.55-1.02) mg/dL Est Cr Clr Drug Dosing Estimated GFR (MDRD) BUN/Creatinine Ratio (No establ ref range) Glucose (70-99) mg/dL POC Glucose (70-99) mg/dL Calcium (8.5-10.1) mg/dL Total Bilirubin (0.2-1.0) mg/dL AST (15-37) U/L ALT (14-59) U/L Alkaline Phosphatase (46-116) U/L Troponin I High Sens (<=51) pg/mL Total Protein (6.4-8.2) g/dL Albumin (3.4-5.0) g/dL Globulin Albumin/Globulin Ratio Urine Color Yellow (YELLOW) Urine Appearance Turbid (CLEAR) Urine pH 8.5 (5.0-9.0) Ur Specific [place] 1.020 (1.005-1.030) Urine Protein Negative (NEGATIVE) Urine Glucose (UA) 100 H (NEGATIVE) Urine Ketones Negative (NEGATIVE) Urine Occult Blood Negative (NEGATIVE) Urine Nitrite Positive H (NEGATIVE) Urine Bilirubin Negative (NEGATIVE) Urine Urobilinogen 0.2 (0.2-1.0) mg/dL Ur Leukocyte Esterase Small H (NEGATIVE) Urine RBC 0-5 (0-5) /HPF Urine WBC 30-40 H (0-5/HPF) /HPF Ur Epithelial Cells Few (NOT SEEN) /HPF Amorphous Sediment Moderate H (NOT SEEN) /HPF Urine Bacteria Many H (0-FEW/HPF) /HPF Urine Mucus Few H (NOT SEEN) /LPF Urine Opiates Screen Negative (NEGATIVE) Ur Oxycodone Screen Negative (NEGATIVE) Urine Methadone Screen Negative (NEGATIVE) Ur Barbiturates Screen Negative (NEGATIVE) U Tricyclic Antidepress Negative (NEGATIVE) Ur Phencyclidine Scrn Negative (NEGATIVE) Ur Amphetamine Screen Negative (NEGATIVE) U Methamphetamines Scrn Negative (NEGATIVE) Urine MDMA Screen Negative (NEGATIVE) U Benzodiazepines Scrn Negative (NEGATIVE) Urine Cocaine Screen Negative (NEGATIVE) U Marijuana (THC) Screen Negative (NEGATIVE) Ethyl Alcohol (0) mg/dL SARS-CoV-2 RNA (ÁNGELA) Negative (NEGATIVE) 04/04/21 04/04/21 04/04/21 Range/Units 05:55 05:55 07:53 WBC 10.8 H (5.0-10.0) 10^3/uL RBC 3.68 L (4.2-5.4) 10^6/uL Hgb 10.4 L D (12.0-16.0) g/dL Hct 30.8 L (37.0-47.0) % MCV 83.7 (80-100) fL MCH 28.3 (27.0-34.0) pg MCHC 33.8 (33.0-35.0) g/dL Plt Count 263 D (150-450) 10^3/uL Neut % (Auto) (42.2-75.2) % Lymph % (Auto) (20.5-50.1) % [place] % (Auto) (2-8) % Eos % (Auto) (1.0-3.0) % Baso % (Auto) (0.0-1.0) % Add Manual Diff Neutrophils % (Manual) (42-75) % Band Neutrophils % % Lymphocytes % (Manual) (20-50) % Monocytes % (Manual) (2-8) % PT (9.0-12.0) SEC INR (0.9-1.2) APTT (22.0-34.0) SEC Sodium 128 L (136-145) mmol/L Potassium 4.2 (3.5-5.1) mmol/L Chloride 91 L (98-107) mmol/L Carbon Dioxide 27 (21-32) mmol/L Anion Gap 14.2 H (7-13) mEq/L BUN 87 H (7-18) mg/dL Creatinine 2.77 H (0.55-1.02) mg/dL Est Cr Clr Drug Dosing 15.37 Estimated GFR (MDRD) 17 BUN/Creatinine Ratio (No establ ref range) Glucose 448 H* (70-99) mg/dL POC Glucose 421 H* (70-99) mg/dL Calcium 8.6 (8.5-10.1) mg/dL Total Bilirubin (0.2-1.0) mg/dL AST (15-37) U/L ALT (14-59) U/L Alkaline Phosphatase (46-116) U/L Troponin I High Sens (<=51) pg/mL Total Protein (6.4-8.2) g/dL Albumin (3.4-5.0) g/dL Globulin Albumin/Globulin Ratio Urine Color (YELLOW) Urine Appearance (CLEAR) Urine pH (5.0-9.0) Ur Specific [place] (1.005-1.030) Urine Protein (NEGATIVE) Urine Glucose (UA) (NEGATIVE) Urine Ketones (NEGATIVE) Urine Occult Blood (NEGATIVE) Urine Nitrite (NEGATIVE) Urine Bilirubin (NEGATIVE) Urine Urobilinogen (0.2-1.0) mg/dL Ur Leukocyte Esterase (NEGATIVE) Urine RBC (0-5) /HPF Urine WBC (0-5/HPF) /HPF Ur Epithelial Cells (NOT SEEN) /HPF Amorphous Sediment (NOT SEEN) /HPF Urine Bacteria (0-FEW/HPF) /HPF Urine Mucus (NOT SEEN) /LPF Urine Opiates Screen (NEGATIVE) Ur Oxycodone Screen (NEGATIVE) Urine Methadone Screen (NEGATIVE) Ur Barbiturates Screen (NEGATIVE) U Tricyclic Antidepress (NEGATIVE) Ur Phencyclidine Scrn (NEGATIVE) Ur Amphetamine Screen (NEGATIVE) U Methamphetamines Scrn (NEGATIVE) Urine MDMA Screen (NEGATIVE) U Benzodiazepines Scrn (NEGATIVE) Urine Cocaine Screen (NEGATIVE) U Marijuana (THC) Screen (NEGATIVE) Ethyl Alcohol (0) mg/dL SARS-CoV-2 RNA (ÁNGELA) (NEGATIVE) Result Diagrams: 04/04/21 05:55 04/04/21 05:55 Sepsis Event Note - Evaluation Sepsis Screening Result: No Definite Risk - Focused Exam Vital Signs: Vital Signs Temp Pulse Pulse Resp BP BP Pulse Ox 04/04/21 09:36 170/70 H 04/04/21 09:35 69 170/70 H 04/04/21 09:32 170/70 H 04/04/21 08:00 98.8 F 69 24 H 170/70 H 96 - Problem List Review Problem List Initiated/Reviewed/Updated: No - My Orders Last 24 Hours: My Active Orders 04/03/21 22:04 Patient Status [ADT] Routine Blood Glucose Check, Bedside [RC] WITHMEALSANDBED Oxygen Therapy [RC] PRN Up With Assistance [RC] ASDIRECTED VTE/DVT Education [RC] Vital Signs [RC] 04,08,12,16,20,00 OT Evaluation and Treatment [CONS] Routine PT Evaluation and Treatment [CONS] Routine Acetaminophen [TylenoL] 650 mg PO Q4H PRN Docusate Sodium [Colace] 100 mg PO BID PRN Docusate Sodium/Sennosides [Senna Plus] 1 tab PO BEDTIME PRN Ondansetron [Zofran] 4 mg IVPUSH Q4H PRN bisacodyL [Dulcolax] 5 mg PO DAILY PRN Resuscitation Status Routine 04/03/21 22:13 Dextrose 50% in Water 50 ml IVPUSH Q15M PRN Glucagon,Human Recombinant [GlucaGen] 1 mg IM Q15M PRN 04/04/21 Breakfast Consistent Carbohydrate Diet [DIET] 04/04/21 08:00 Insulin Lispro [HumaLOG] See Protocol SUBCUT WITHMEALSANDBED 04/04/21 09:00 Ascorbic Acid [Vitamin C] 1,000 mg PO DAILY Aspirin [Halfprin] 81 mg PO DAILY FLUoxetine [PROzac] 20 mg PO TID Furosemide [Lasix] 60 mg PO TID Isosorbide Mononitrate [Imdur] 30 mg PO DAILY Metoprolol Tartrate [Lopressor] 100 mg PO BID Potassium Chloride [Klor-Con 10] 20 meq PO DAILY Spironolactone [Aldactone] 25 mg PO DAILY allopurinoL [Zyloprim] 100 mg PO DAILY amLODIPine [Norvasc] 5 mg PO DAILY calcitrioL [Rocaltrol] 0.25 mcg PO DAILY glipiZIDE [Glucotrol] 5 mg PO DAILY 04/04/21 12:00 Insulin Lispro Prot/Lispro [HumaLOG Mix 75-25] 32 unit SUBCUT BIDMEALS 04/04/21 21:00 Gabapentin [Neurontin] 300 mg PO BEDTIME Montelukast [Singulair] 10 mg PO BEDTIME Simvastatin [Zocor] 40 mg PO BEDTIME cefTRIAXone [Rocephin] 1 gm Sodium Chloride 0.9% [Normal Saline] 50 ml IV Q24H 04/05/21 09:00 Enoxaparin [Lovenox] 30 mg SUBCUT DAILY - Plan Plan:: Patient arrived to ED by Ambulance after a ground level fall at home. Patient states that she hit the back of her head but did not loose consciousness. She has a skin tear on the right arm and pain in the left pelvis. Patient lives home alone and reports that she has had multiple frequent falls in the past few weeks. in fact she fell on Saturday. She denies neck pain, chest pain, nausea, vomiting or shortness of breath. Multiple falls: multifactorial spinal stenosis Obesity, Chronic lower ext edema Old RT ankle injury ( with chronic brace). UTI and hyponatremia: less likely to be the main factors. DM type 2, recently stopped Insulin to oral medications. pt states that Lantus caused her severe edema. > Humalog 75/25 at 32 BID CKD stage 4 Needs PT/OT Pt states that she is scheduled for back surgery in Apr. Ceftriaxone Repeat Na, fluid restriction to 1.5 L DVT prophylaxis: stat Lovenox after 48 hrs due to wide spread ecchymosis. DNR/DNI
[2021-04-04] MEDS: Insulin Lispro Protamine/Lispro 75-25 100 Units/ML 10 ML Vial SUBCUT SCH ×2 (13:06→17:48)
[2021-04-04] MEDS ORDERED: cefTRIAXone 1 GM Vial IM SCH (21:00)
[2021-04-04] MEDS ORDERED: cefTRIAXone 1 GM in Sodium Chloride 0.9% 50 ML IV SCH (21:00)
[2021-04-04] MEDS: Montelukast 10 MG Tab PO SCH (21:05)
[2021-04-04] MEDS: Gabapentin 300 MG Cap PO SCH (21:05)
[2021-04-04] MEDS: Simvastatin 40 MG Tab PO SCH (21:05)
[2021-04-05] MEDS: FLUoxetine 10 MG Cap PO SCH ×3 (09:45→21:58)
[2021-04-05] MEDS: Ascorbic Acid 500 MG Tab PO SCH (09:45)
[2021-04-05] MEDS: Aspirin 81 MG Tab.EC PO SCH (09:45)
[2021-04-05] MEDS: Spironolactone 25 MG Tab PO SCH (09:45)
[2021-04-05] MEDS: Calcitriol 0.25 MCG Cap PO SCH (09:45)
[2021-04-05] MEDS: Potassium Chloride 10 MEQ Tab.ER PO SCH (09:46)
[2021-04-05] MEDS: Allopurinol 100 MG Tab PO SCH (09:46)
[2021-04-05] MEDS: glipiZIDE 5 MG Tab PO SCH (09:46)
[2021-04-05] MEDS: Furosemide 40 MG Tab PO SCH ×3 (09:46→21:55)
[2021-04-05] MEDS: Enoxaparin 30 MG/0.3 ML Syringe SUBCUT SCH (09:47)
[2021-04-05] MEDS: Insulin Lispro 100 Units/ML 3 ML Vial SUBCUT SCH ×4 (09:50→22:08)
[2021-04-05] MEDS: Insulin Lispro Protamine/Lispro 75-25 100 Units/ML 10 ML Vial SUBCUT SCH ×2 (09:52→17:59)
[2021-04-05] MEDS: Isosorbide Mononitrate 30 MG Tab.ER PO SCH (09:56)
[2021-04-05] MEDS: Metoprolol Tartrate 50 MG Tab PO SCH ×2 (09:57→21:57)
[2021-04-05] MEDS: amLODIPine 5 MG Tab PO SCH (09:57)
--- NOTE | 2021-04-05 10:41 | PCM.PN ---
- General Info Date of Service: 04/05/21 Functional Status: Reports: Pain Controlled, Tolerating Diet, Ambulating (a little) - Review of Systems General: Denies: Fever Pulmonary: Denies: Shortness of Breath Cardiovascular: Denies: Chest Pain Gastrointestinal: Denies: Abdominal Pain Neurological: Denies: Confusion Psychiatric: Denies: Confusion - Patient Data Vitals - Most Recent: Last Vital Signs Temp 98.6 F 04/05/21 08:00 Pulse 71 04/05/21 09:57 Resp 18 04/05/21 08:00 BP 177/59 H 04/05/21 09:57 Pulse Ox 97 04/05/21 08:00 Weight - Most Recent: 254 lb 4.8 oz I&O - Last 24 Hours: Intake & Output 04/04/21 04/05/21 04/05/21 22:59 06:59 14:59 Intake Total 800 100 Balance 800 100 Lab Results Last 24 Hours: Laboratory Results - last 24 hr 04/04/21 04/04/21 04/04/21 Range/Units 12:07 16:44 21:22 POC Glucose 258 H 202 H 162 H (70-99) mg/dL 04/05/21 Range/Units 07:42 POC Glucose 138 H (70-99) mg/dL [facility] Results Last 24 Hours: Microbiology 04/03/21 19:59 Urine Culture - Preliminary Urine, Catheterized 04/03/21 20:47 Aerobic Blood Culture - Preliminary Blood NO GROWTH AFTER 1 DAY Anaerobic Blood Culture - Preliminary NO GROWTH AFTER 1 DAY Med Orders - Current: Current Medications Acetaminophen (Acetaminophen 325 Mg Tab) 650 mg PO Q4H PRN PRN Reason: Pain (Mild 1-3)/fever Last Admin: 04/05/21 02:14 Dose: 650 mg Documented by: Allopurinol (Allopurinol 100 Mg Tab) 100 mg PO DAILY [facility] Last Admin: 04/05/21 09:46 Dose: 100 mg Documented by: Amlodipine Besylate (Amlodipine 5 Mg Tab) 5 mg PO DAILY [facility] Last Admin: 04/05/21 09:57 Dose: 5 mg Documented by: Ascorbic Acid (Ascorbic Acid 500 Mg Tab) 1,000 mg PO DAILY [facility] Last Admin: 04/05/21 09:45 Dose: 1,000 mg Documented by: Aspirin (Aspirin 81 Mg Tab.Ec) 81 mg PO DAILY [facility] Last Admin: 04/05/21 09:45 Dose: 81 mg Documented by: Bisacodyl (Bisacodyl 5 Mg Tab) 5 mg PO DAILY PRN PRN Reason: Constipation Calcitriol (Calcitriol 0.25 Mcg Cap) 0.25 mcg PO DAILY [facility] Last Admin: 04/05/21 09:45 Dose: 0.25 mcg Documented by: Dextrose/Water (50% Dextrose In Water 50 Ml Syringe) 50 ml IVPUSH Q15M PRN PRN Reason: Hypoglycemia Docusate Sodium (Docusate Sodium 100 Mg Cap) 100 mg PO BID PRN PRN Reason: Constipation Enoxaparin Sodium (Enoxaparin 30 Mg/0.3 Ml Syringe) 30 mg SUBCUT DAILY [facility] Last Admin: 04/05/21 09:47 Dose: 30 mg Documented by: Fluoxetine HCl (Fluoxetine 10 Mg Cap) 20 mg PO TID [facility] Last Admin: 04/05/21 09:45 Dose: 20 mg Documented by: Furosemide (Furosemide 40 Mg Tab) 60 mg PO TID [facility] Last Admin: 04/05/21 09:46 Dose: 60 mg Documented by: Gabapentin (Gabapentin 300 Mg Cap) 300 mg PO BEDTIME [facility] Last Admin: 04/04/21 21:05 Dose: 300 mg Documented by: Glipizide (Glipizide 5 Mg Tab) 5 mg PO DAILY [facility] Last Admin: 04/05/21 09:46 Dose: 5 mg Documented by: Glucagon (Glucagon,Human Recombinant 1 Mg Vial) 1 mg IM Q15M PRN PRN Reason: Hypoglycemia Ceftriaxone Sodium 1 gm/ (Sodium Chloride) 50 mls @ 100 mls/hr IV Q24H [facility] Last Admin: 04/04/21 21:03 Dose: 100 mls/hr Documented by: Insulin Human Lispro (Insulin Lispro 100 Units/Ml 3 Ml Vial) 0 unit SUBCUT WITHMEALSANDBED [facility]; Protocol Last Admin: 04/05/21 09:50 Dose: Not Given Documented by: Insulin Lispro Protam/Lispro Human (Insulin Lispro Protamine/Lispro 75-25 100 Units/Ml 10 Ml Vial) 32 unit SUBCUT BIDMEALS [facility] Last Admin: 04/05/21 09:52 Dose: 32 units Documented by: Isosorbide Mononitrate (Isosorbide Mononitrate 30 Mg Tab.Er) 30 mg PO DAILY [facility] Last Admin: 04/05/21 09:56 Dose: 30 mg Documented by: Metoprolol Tartrate (Metoprolol Tartrate 50 Mg Tab) 100 mg PO BID [facility] Last Admin: 04/05/21 09:57 Dose: 100 mg Documented by: Montelukast Sodium (Montelukast 10 Mg Tab) 10 mg PO BEDTIME [facility] Last Admin: 04/04/21 21:05 Dose: 10 mg Documented by: Ondansetron HCl (Ondansetron 4 Mg/2 Ml Sdv) 4 mg IVPUSH Q4H PRN PRN Reason: Nausea/Vomiting Potassium Chloride (Potassium Chloride 10 Meq Tab.Er) 20 meq PO DAILY [facility] Last Admin: 04/05/21 09:46 Dose: 20 meq Documented by: Senna/Docusate Sodium (Docusate Sodium/Sennosides 50-8.6 Mg Tab) 1 tab PO BEDTIME PRN PRN Reason: Constipation Simvastatin (Simvastatin 40 Mg Tab) 40 mg PO BEDTIME [facility] Last Admin: 04/04/21 21:05 Dose: 40 mg Documented by: Sodium Chloride (Sodium Chloride 0.9% 10 Ml Syringe) 10 ml FLUSH ASDIRECTED PRN PRN Reason: Keep Vein Open Last Admin: 04/03/21 20:39 Dose: 10 ml Documented by: Spironolactone (Spironolactone 25 Mg Tab) 25 mg PO DAILY [facility] Last Admin: 04/05/21 09:45 Dose: 25 mg Documented by: Discontinued Medications Ceftriaxone Sodium (Ceftriaxone 1 Gm Vial) 1 gm IM Q24H [facility] Diphtheria/Tetanus/Acell Pertussis (Diphtheria,Pertussis(Acell),Tetanus Vaccine 0.5 Ml Syringe) 0.5 ml IM .ONCE ONE Stop: 04/03/21 17:54 Last Admin: 04/03/21 20:04 Dose: 0.5 ml Documented by: Enoxaparin Sodium (Enoxaparin 30 Mg/0.3 Ml Syringe) 30 mg SUBCUT DAILY [facility] Gabapentin (Gabapentin 300 Mg Cap) 300 mg PO ONETIME ONE Stop: 04/03/21 22:51 Last Admin: 04/03/21 23:21 Dose: 300 mg Documented by: Ceftriaxone Sodium 1 gm/ (Sodium Chloride) 50 mls @ 100 mls/hr IV ONETIME ONE Stop: 04/03/21 20:49 Last Admin: 04/03/21 20:38 Dose: 100 mls/hr Documented by: Insulin Human Lispro (Insulin Lispro 100 Units/Ml 3 Ml Vial) 10 unit SUBCUT ONETIME ONE Stop: 04/04/21 08:31 Last Admin: 04/04/21 09:36 Dose: 10 units Documented by: Iopamidol (Iopamidol 612 Mg/Ml 100 Ml Bottle) 100 ml IVPUSH ONETIME ONE Stop: 04/03/21 18:17 Last Admin: 04/03/21 18:54 Dose: 100 ml Documented by: - Exam Quality Assessment: No: Supplemental Oxygen General: Alert, Oriented, Cooperative Neck: No JVD Lungs: Clear to Auscultation, Normal Respiratory Effort GI/Abdominal Exam: Soft, Non-Tender, Other (obesity) Back Exam: Normal Inspection Extremities: Other (RT ankle in brace) Skin: Ecchymosis (all over), Other (abrsaion to B upper ext) Neurological: No New Focal Deficit Psy/Mental Status: Alert, Normal Affect - Patient Data Lab Results Last 24 hrs: Laboratory Results - last 24 hr 04/04/21 04/04/21 04/04/21 Range/Units 12:07 16:44 21:22 POC Glucose 258 H 202 H 162 H (70-99) mg/dL 04/05/21 Range/Units 07:42 POC Glucose 138 H (70-99) mg/dL Result Diagrams: 04/04/21 05:55 04/04/21 05:55 [facility] Results Last 24 hrs: Microbiology 04/03/21 19:59 Urine Culture - Preliminary Urine, Catheterized 04/03/21 20:47 Aerobic Blood Culture - Preliminary Blood NO GROWTH AFTER 1 DAY Anaerobic Blood Culture - Preliminary NO GROWTH AFTER 1 DAY Sepsis Event Note - Evaluation Sepsis Screening Result: No Definite Risk - Focused Exam Vital Signs: Vital Signs Temp Pulse Pulse Resp BP BP Pulse Ox 04/05/21 09:57 71 177/59 H 04/05/21 09:56 177/59 H 04/05/21 08:00 98.6 F 71 18 177/59 H 97 04/05/21 04:00 99.3 F 58 L 20 165/62 H 94 L 04/05/21 00:00 99 F 66 20 174/69 H 98 - Problem List Review Problem List Initiated/Reviewed/Updated: No - My Orders Last 24 Hours: My Active Orders 04/04/21 12:00 Insulin Lispro Prot/Lispro [HumaLOG Mix 75-25] 32 unit SUBCUT BIDMEALS 04/04/21 Dinner Fluid Restriction [DIET] 04/04/21 20:25 Communication Order [RC] BID 04/04/21 21:00 Gabapentin [Neurontin] 300 mg PO BEDTIME Montelukast [Singulair] 10 mg PO BEDTIME Simvastatin [Zocor] 40 mg PO BEDTIME cefTRIAXone [Rocephin] 1 gm Sodium Chloride 0.9% [Normal Saline] 50 ml IV Q24H 04/05/21 09:00 Enoxaparin [Lovenox] 30 mg SUBCUT DAILY - Plan Plan:: Patient arrived to ED by Ambulance after a ground level fall at home. Patient states that she hit the back of her head but did not loose consciousness. She has a skin tear on the right arm and pain in the left pelvis. Patient lives home alone and reports that she has had multiple frequent falls in the past few weeks. in fact she fell on Saturday. She denies neck pain, chest pain, nausea, vomiting or shortness of breath. Multiple falls: multifactorial spinal stenosis Obesity, Chronic lower ext edema Old RT ankle injury ( with chronic brace). UTI: cult no growth. DC Rocephin. hyponatremia: less likely to be the main factors. DM type 2, recently stopped Insulin to oral medications. pt states that Lantus caused her severe edema. > Humalog 75/25 at 32 BID: BS is better CKD stage 4 Needs PT/OT> for SWING in am. up in chair TID and ambulate TID Pt states that she is scheduled for back surgery in Apr. DC Ceftriaxone Repeat Na, fluid restriction to 1.5 L DVT prophylaxis: stat Lovenox after 48 hrs due to wide spread ecchymosis. DNR/DNI
[2021-04-05] MEDS ORDERED: cefTRIAXone 1,000 MG in Sodium Chloride 0.9% 50 ML IV SCH (10:45)
[2021-04-05] MEDS ORDERED: cefTRIAXone 1 GM in Sodium Chloride 0.9% 50 ML IV SCH (21:00)
[2021-04-05] MEDS: Simvastatin 40 MG Tab PO SCH (21:54)
[2021-04-05] MEDS: Montelukast 10 MG Tab PO SCH (21:55)
[2021-04-05] MEDS: Gabapentin 300 MG Cap PO SCH (21:57)
[2021-04-06 06:59] LABS: ANION GAP 12.7 mEq/L (7-13)
[2021-04-06] MEDS: Insulin Lispro 100 Units/ML 3 ML Vial SUBCUT SCH (07:44)
[2021-04-06] MEDS: Isosorbide Mononitrate 30 MG Tab.ER PO SCH (08:04)
[2021-04-06] MEDS: Spironolactone 25 MG Tab PO SCH (08:04)
[2021-04-06] MEDS: Furosemide 40 MG Tab PO SCH (08:05)
[2021-04-06] MEDS: Allopurinol 100 MG Tab PO SCH (08:05)
[2021-04-06] MEDS: amLODIPine 5 MG Tab PO SCH (08:05)
[2021-04-06] MEDS: FLUoxetine 10 MG Cap PO SCH (08:05)
[2021-04-06] MEDS: glipiZIDE 5 MG Tab PO SCH (08:05)
[2021-04-06] MEDS: Ascorbic Acid 500 MG Tab PO SCH (08:05)
[2021-04-06] MEDS: Potassium Chloride 10 MEQ Tab.ER PO SCH (08:06)
[2021-04-06] MEDS: Aspirin 81 MG Tab.EC PO SCH (08:06)
[2021-04-06] MEDS: Metoprolol Tartrate 50 MG Tab PO SCH (08:06)
[2021-04-06] MEDS: Calcitriol 0.25 MCG Cap PO SCH (08:06)
[2021-04-06 08:07] VITALS: BP 174/63; PULSE 73
[2021-04-06] MEDS: Insulin Lispro Protamine/Lispro 75-25 100 Units/ML 10 ML Vial SUBCUT SCH (08:09)
[2021-04-06] MEDS: Enoxaparin 30 MG/0.3 ML Syringe SUBCUT SCH (08:12)
--- NOTE | 2021-04-06 09:46 | PCM.DCSUM1 ---
Discharge Summary - Hospital Course Free Text/Narrative:: Patient arrived to ED by Ambulance after a ground level fall at home. Patient states that she hit the back of her head but did not loose consciousness. She has a skin tear on the right arm and pain in the left pelvis. Patient lives home alone and reports that she has had multiple frequent falls in the past few weeks. in fact she fell on Saturday. She denies neck pain, chest pain, nausea, vomiting or shortness of breath. Multiple falls: multifactorial spinal stenosis Obesity, Chronic lower ext edema Old RT ankle injury ( with chronic brace). UTI: cult Proteus. Teated with Rocephin then switched to Cefazolin. Hyponatremia: improved with mild fluid restriction. Repeat Na one Saturday, fluid restriction to 1.5 L DM type 2, recently stopped Insulin to oral medications. pt states that Lantus caused her severe edema. > Humalog 75/25 at 32 BID: BS is better CKD stage 4 Needs PT/OT> for SWING in am. up in chair TID and ambulate TID Pt states that she is scheduled for back surgery in Apr. DVT prophylaxis: stat Lovenox DNR/DNI - Discharge Data Discharge Date: 04/06/21 Discharge Disposition: DC/Tfer W/I Hosp To Swing [facility] Condition: Fair - Referral to Home Health Primary Care Physician: PCP None - Patient Summary/Data Consults: Consultations 04/03/21 22:04 OT Evaluation and Treatment [CONS] Routine PT Evaluation and Treatment [CONS] Routine - Patient Instructions Diet: Diabetic Diet Fluid Restriction: 1500 mL Activity: As Tolerated Notify Provider of: Fever, Increased Pain, Swelling and Redness, Drainage, Nausea and/or Vomiting - Discharge Plan Home Medications: Home Meds Ascorbic Acid [Vitamin C with Alba Hips] 1,000 mg PO DAILY 04/03/21 [History] Aspirin [Adult Low Dose Aspirin EC] 81 mg PO DAILY 04/03/21 [History] Calcitriol 0.25 mcg PO DAILY 04/03/21 [History] FLUoxetine [PROzac] 20 mg PO TID 04/03/21 [History] Furosemide 60 mg PO TID@0800,1200,1600 04/03/21 [History] Gabapentin [Neurontin] 300 mg PO TID 04/03/21 [History] Isosorbide Mononitrate [Isosorbide Mononitrate ER] 30 mg PO DAILY 04/03/21 [History] Metoprolol Tartrate 100 mg PO BID 04/03/21 [History] Montelukast [Singulair] 10 mg PO BEDTIME 04/03/21 [History] Potassium Chloride 20 meq PO BID 04/03/21 [History] Spironolactone [Aldactone] 25 mg PO DAILY 04/03/21 [History] allopurinoL [Zyloprim] 100 mg PO DAILY 04/03/21 [History] amLODIPine [Norvasc] 5 mg PO DAILY 04/03/21 [History] glipiZIDE [Glucotrol] 5 mg PO DAILY 04/03/21 [History] Simvastatin 40 mg PO BEDTIME 04/04/21 [History] Oxygen Therapy Mode: Room Air Forms: ED Department Discharge - Discharge Summary/Plan Comment DC Time >30 min.: Yes Total # of Minutes for Discharge Time: 35 min Discharge Summary/Plan Comment: 35 min - General Info Date of Service: 04/06/21 Functional Status: Reports: Tolerating Diet. Denies: Pain Controlled - Review of Systems General: Denies: Fever Pulmonary: Reports: Shortness of Breath Cardiovascular: Reports: Chest Pain Gastrointestinal: Denies: Abdominal Pain Genitourinary: Denies: Dysuria Neurological: Denies: Confusion Psychiatric: Denies: Confusion - Patient Data Vitals - Most Recent: Last Vital Signs Temp 97.5 F 04/06/21 08:00 Pulse 73 04/06/21 08:06 Resp 100 H 04/06/21 08:00 BP 174/63 H 04/06/21 08:06 Pulse Ox 93 L 04/06/21 04:00 Weight - Most Recent: 252 lb 9.6 oz I&O - Last 24 hours: Intake & Output 04/05/21 04/06/21 04/06/21 22:59 06:59 14:59 Intake Total 380 200 Balance 380 200 Lab Results - Last 24 hrs: Laboratory Results - last 24 hr 04/05/21 04/05/21 04/05/21 Range/Units 11:40 16:49 20:51 Sodium (136-145) mmol/L Potassium (3.5-5.1) mmol/L Chloride (98-107) mmol/L Carbon Dioxide (21-32) mmol/L Anion Gap (7-13) mEq/L BUN (7-18) mg/dL Creatinine (0.55-1.02) mg/dL Est Cr Clr Drug Dosing mL/min Estimated GFR (MDRD) Glucose (70-99) mg/dL POC Glucose 183 H 102 H 134 H (70-99) mg/dL Calcium (8.5-10.1) mg/dL 04/06/21 04/06/21 Range/Units 05:30 07:37 Sodium 135 L (136-145) mmol/L Potassium 3.7 (3.5-5.1) mmol/L Chloride 96 L (98-107) mmol/L Carbon Dioxide 30 (21-32) mmol/L Anion Gap 12.7 (7-13) mEq/L BUN 84 H (7-18) mg/dL Creatinine 2.54 H (0.55-1.02) mg/dL Est Cr Clr Drug Dosing 16.77 mL/min Estimated GFR (MDRD) 19 Glucose 96 (70-99) mg/dL POC Glucose 105 H (70-99) mg/dL Calcium 8.9 (8.5-10.1) mg/dL JEAN-PAUL Results - Last 24 hrs: Microbiology 04/03/21 19:59 Urine Culture - Final Urine, Catheterized Proteus Mirabilis 04/03/21 20:47 Aerobic Blood Culture - Preliminary Blood NO GROWTH AFTER 2 DAYS Anaerobic Blood Culture - Preliminary NO GROWTH AFTER 2 DAYS Med Orders - Current: Current Medications Acetaminophen (Acetaminophen 325 Mg Tab) 650 mg PO Q4H PRN PRN Reason: Pain (Mild 1-3)/fever Last Admin: 04/05/21 02:14 Dose: 650 mg Documented by: Allopurinol (Allopurinol 100 Mg Tab) 100 mg PO DAILY [facility] Last Admin: 04/06/21 08:05 Dose: 100 mg Documented by: Amlodipine Besylate (Amlodipine 5 Mg Tab) 5 mg PO DAILY [facility] Last Admin: 04/06/21 08:05 Dose: 5 mg Documented by: Ascorbic Acid (Ascorbic Acid 500 Mg Tab) 1,000 mg PO DAILY [facility] Last Admin: 04/06/21 08:05 Dose: 1,000 mg Documented by: Aspirin (Aspirin 81 Mg Tab.Ec) 81 mg PO DAILY [facility] Last Admin: 04/06/21 08:06 Dose: 81 mg Documented by: Bisacodyl (Bisacodyl 5 Mg Tab) 5 mg PO DAILY PRN PRN Reason: Constipation Calcitriol (Calcitriol 0.25 Mcg Cap) 0.25 mcg PO DAILY [facility] Last Admin: 04/06/21 08:06 Dose: 0.25 mcg Documented by: Dextrose/Water (50% Dextrose In Water 50 Ml Syringe) 50 ml IVPUSH Q15M PRN PRN Reason: Hypoglycemia Docusate Sodium (Docusate Sodium 100 Mg Cap) 100 mg PO BID PRN PRN Reason: Constipation Enoxaparin Sodium (Enoxaparin 30 Mg/0.3 Ml Syringe) 30 mg SUBCUT DAILY [facility] Last Admin: 04/06/21 08:12 Dose: 30 mg Documented by: Fluoxetine HCl (Fluoxetine 10 Mg Cap) 20 mg PO TID [facility] Last Admin: 04/06/21 08:05 Dose: 20 mg Documented by: Furosemide (Furosemide 40 Mg Tab) 60 mg PO TID [facility] Last Admin: 04/06/21 08:05 Dose: 60 mg Documented by: Gabapentin (Gabapentin 300 Mg Cap) 300 mg PO BEDTIME [facility] Last Admin: 04/05/21 21:57 Dose: 300 mg Documented by: Glipizide (Glipizide 5 Mg Tab) 5 mg PO DAILY [facility] Last Admin: 04/06/21 08:05 Dose: 5 mg Documented by: Glucagon (Glucagon,Human Recombinant 1 Mg Vial) 1 mg IM Q15M PRN PRN Reason: Hypoglycemia Ceftriaxone Sodium 1 gm/ (Sodium Chloride) 50 mls @ 100 mls/hr IV Q24H [facility] Last Admin: 04/05/21 21:12 Dose: 100 mls/hr Documented by: Insulin Human Lispro (Insulin Lispro 100 Units/Ml 3 Ml Vial) 0 unit SUBCUT WITHMEALSANDBED [facility]; Protocol Last Admin: 04/06/21 07:44 Dose: Not Given Documented by: Insulin Lispro Protam/Lispro Human (Insulin Lispro Protamine/Lispro 75-25 100 Units/Ml 10 Ml Vial) 32 unit SUBCUT BIDMEALS [facility] Last Admin: 04/06/21 08:09 Dose: 32 units Documented by: Isosorbide Mononitrate (Isosorbide Mononitrate 30 Mg Tab.Er) 30 mg PO DAILY [facility] Last Admin: 04/06/21 08:04 Dose: 30 mg Documented by: Metoprolol Tartrate (Metoprolol Tartrate 50 Mg Tab) 100 mg PO BID [facility] Last Admin: 04/06/21 08:06 Dose: 100 mg Documented by: Montelukast Sodium (Montelukast 10 Mg Tab) 10 mg PO BEDTIME [facility] Last Admin: 04/05/21 21:55 Dose: 10 mg Documented by: Ondansetron HCl (Ondansetron 4 Mg/2 Ml Sdv) 4 mg IVPUSH Q4H PRN PRN Reason: Nausea/Vomiting Potassium Chloride (Potassium Chloride 10 Meq Tab.Er) 20 meq PO DAILY [facility] Last Admin: 04/06/21 08:06 Dose: 20 meq Documented by: Senna/Docusate Sodium (Docusate Sodium/Sennosides 50-8.6 Mg Tab) 1 tab PO BEDTIME PRN PRN Reason: Constipation Simvastatin (Simvastatin 40 Mg Tab) 40 mg PO BEDTIME [facility] Last Admin: 04/05/21 21:54 Dose: 40 mg Documented by: Sodium Chloride (Sodium Chloride 0.9% 10 Ml Syringe) 10 ml FLUSH ASDIRECTED PRN PRN Reason: Keep Vein Open Last Admin: 04/03/21 20:39 Dose: 10 ml Documented by: Spironolactone (Spironolactone 25 Mg Tab) 25 mg PO DAILY [facility] Last Admin: 04/06/21 08:04 Dose: 25 mg Documented by: Discontinued Medications Ceftriaxone Sodium (Ceftriaxone 1 Gm Vial) 1 gm IM Q24H [facility] Diphtheria/Tetanus/Acell Pertussis (Diphtheria,Pertussis(Acell),Tetanus Vaccine 0.5 Ml Syringe) 0.5 ml IM .ONCE ONE Stop: 04/03/21 17:54 Last Admin: 04/03/21 20:04 Dose: 0.5 ml Documented by: Enoxaparin Sodium (Enoxaparin 30 Mg/0.3 Ml Syringe) 30 mg SUBCUT DAILY [facility] Gabapentin (Gabapentin 300 Mg Cap) 300 mg PO ONETIME ONE Stop: 04/03/21 22:51 Last Admin: 04/03/21 23:21 Dose: 300 mg Documented by: Ceftriaxone Sodium 1 gm/ (Sodium Chloride) 50 mls @ 100 mls/hr IV ONETIME ONE Stop: 04/03/21 20:49 Last Admin: 04/03/21 20:38 Dose: 100 mls/hr Documented by: Ceftriaxone Sodium 1 gm/ (Sodium Chloride) 50 mls @ 100 mls/hr IV Q24H [facility] Last Admin: 04/04/21 21:03 Dose: 100 mls/hr Documented by: Insulin Human Lispro (Insulin Lispro 100 Units/Ml 3 Ml Vial) 10 unit SUBCUT ONETIME ONE Stop: 04/04/21 08:31 Last Admin: 04/04/21 09:36 Dose: 10 units Documented by: Iopamidol (Iopamidol 612 Mg/Ml 100 Ml Bottle) 100 ml IVPUSH ONETIME ONE Stop: 04/03/21 18:17 Last Admin: 04/03/21 18:54 Dose: 100 ml Documented by: - Exam Quality Assessment: Denies: Supplemental Oxygen General: Reports: Alert, Oriented HEENT: Reports: EOMI Neck: Reports: No JVD Lungs: Reports: Clear to Auscultation, Normal Respiratory Effort Cardiovascular: Reports: Regular Rhythm, No Murmurs GI/Abdominal Exam: Normal Bowel Sounds, Soft, Non-Tender (Female) Exam: Deferred Rectal (Female) Exam: Deferred Extremities: Pedal Edema Skin: Reports: Ecchymosis, Other (abrasions to upper ext. ) Neurological: Reports: No New Focal Deficit Psy/Mental Status: Reports: Alert, Normal Affect
[2021-04-06] MEDS ORDERED: Cephalexin 500 MG Cap PO SCH (14:00)
== END 2021-04-06 10:42 | disposition swing bed (61) | DRG 690 ==
LOC: DL.ED 17:40 → DL.MS 21:14
PROVIDERS: ADMIT Internal Medicine; ATTEND Internal Medicine
DX: N39.0 Urinary tract infection, site not specified (principal); E87.1 Hypo-osmolality and hyponatremia; N18.4 Chronic kidney disease, stage 4 (severe); W19.XXXA Unspecified fall, initial encounter; Z68.42 Body mass index [BMI] 45.0-49.9, adult; I10 Essential (primary) hypertension; F32.9 Major depressive disorder, single episode, unspecified; Z66 Do not resuscitate; M48.00 Spinal stenosis, site unspecified; B96.4 Proteus (mirabilis) (morganii) as the cause of diseases classified elsewhere; E11.22 Type 2 diabetes mellitus with diabetic chronic kidney disease; E66.9 Obesity, unspecified; Z20.822 Contact with and (suspected) exposure to COVID-19; S09.8XXA Other specified injuries of head, initial encounter; M79.601 Pain in right arm; H54.7 Unspecified visual loss; E78.00 Pure hypercholesterolemia, unspecified; F32.A Depression, unspecified; R29.6 Repeated falls; Z28.82 Immunization not carried out because of caregiver refusal; Z90.49 Acquired absence of other specified parts of digestive tract; Z88.1 Allergy status to other antibiotic agents; Z88.8 Allergy status to other drugs, medicaments and biological substances; Z79.82 Long term (current) use of aspirin; Z79.899 Other long term (current) drug therapy; Z79.84 Long term (current) use of oral hypoglycemic drugs
CPT/HCPCS: 36415; 70450; 71260; 72125; 74177; 80048; 80053; 80305-QW; 80307; 81001; 82947; 84484; 85025; 85027; 85610; 85730; 87040; 87086; 87088; 87186; 90471; 90715; 93005; 96365; 97116-GP; 97161-GP; 97166-GO; 97530-GO; 97530-GP; 99285-25; A9270-GY; J0696; J1650; J1815-GY; Q9967; U0002

== ENCOUNTER 2021-04-06 09:50 | Inpatient (IN) | payer MEDICARE, OTHER ==
[2021-04-06] MEDS ORDERED: Bisacodyl 5 MG Tab PO PRN (09:57)
[2021-04-06] MEDS ORDERED: Glucagon,Human Recombinant 1 MG Vial IM PRN ×2 (09:57)
[2021-04-06] MEDS ORDERED: 50% Dextrose in Water 50 ML Syringe IVPUSH PRN (09:57)
[2021-04-06] MEDS ORDERED: Sodium Chloride 0.9% 10 ML Syringe FLUSH PRN ×2 (09:57)
[2021-04-06] MEDS ORDERED: Docusate Sodium 100 MG Cap PO PRN (09:57)
--- NOTE | 2021-04-06 10:17 | PCM.HP ---
H&P History of Present Illness - General Date of Service: 04/06/21 Admit Problem/Dx: Admission Diagnosis/Problem Admission Diagnosis/Problem UTI, Urinary tract infectious disease Source of Information: Patient, Old Records, Provider - History of Present Illness Initial Comments - Free Text/Narative: Patient was transferred from Med/Surg to SWING bed for PT/OT/. Pt initial came to ED by after a ground level fall at home. She has a skin tear on the right arm and pain in the left pelvis. Patient lives home alone and reports that she has had multiple frequent falls in the past few weeks. In fact she fell on Saturday. She denies neck pain, chest pain, nausea, vomiting or shortness of breath. - Related Data Allergies/Adverse Reactions: Allergies Allergy/AdvReac Type Severity Reaction Status Date / Time erythromycin base Allergy Nausea and Verified 01/28/17 17:10 Vomiting megestrol Allergy HIVES/UTICA Verified 10/13/18 12:20 LAURA niacin Allergy UNKNOWN Verified 10/13/18 12:20 alcohol AdvReac Itching Verified 10/13/18 12:20 metolazone AdvReac DIZZY, Verified 10/13/18 12:20 LIGHTHEADED Home Medications: Home Meds Ascorbic Acid [Vitamin C with Alba Hips] 1,000 mg PO DAILY 04/03/21 [History] Aspirin [Adult Low Dose Aspirin EC] 81 mg PO DAILY 04/03/21 [History] Calcitriol 0.25 mcg PO DAILY 04/03/21 [History] FLUoxetine [PROzac] 20 mg PO TID 04/03/21 [History] Furosemide 60 mg PO TID@0800,1200,1600 04/03/21 [History] Gabapentin [Neurontin] 300 mg PO TID 04/03/21 [History] Isosorbide Mononitrate [Isosorbide Mononitrate ER] 30 mg PO DAILY 04/03/21 [History] Metoprolol Tartrate 100 mg PO BID 04/03/21 [History] Montelukast [Singulair] 10 mg PO BEDTIME 04/03/21 [History] Potassium Chloride 20 meq PO BID 04/03/21 [History] Spironolactone [Aldactone] 25 mg PO DAILY 04/03/21 [History] allopurinoL [Zyloprim] 100 mg PO DAILY 04/03/21 [History] amLODIPine [Norvasc] 5 mg PO DAILY 04/03/21 [History] glipiZIDE [Glucotrol] 5 mg PO DAILY 04/03/21 [History] Simvastatin 40 mg PO BEDTIME 04/04/21 [History] Past Medical History HEENT History: Reports: Impaired Vision Cardiovascular History: Reports: High Cholesterol, Hypertension Genitourinary History: Reports: Urinary Incontinence MATERIAL ASSISTANT History: Reports: Musculoskeletal History: Reports: Osteoarthritis Psychiatric History: Reports: Depression Endocrine/Metabolic History: Reports: Diabetes, Type II, Obesity/BMI 30+ Social & Family History - Family History Family Medical History: No Pertinent Family History - Caffeine Use Caffeine Use: Reports: None H&P Review of Systems - Review of Systems: Review Of Systems: Comprehensive ROS is negative, except as noted in HPI. Exam - Exam Exam: See Below - Exam Quality Assessment: No: Supplemental Oxygen General: Alert, Oriented HEENT: EOMI Neck: Supple Lungs: Clear to Auscultation, Normal Respiratory Effort Cardiovascular: Regular Rate, Regular Rhythm GI/Abdominal Exam: Soft, Non-Tender Skin: Dry, Ecchymosis Neurological: Cranial Nerves Intact Neuro Extensive - Mental Status: Alert, Oriented x3 Neuro Extensive - Motor, Sensory, Reflexes: CN II-XII Intact. No: Motor/Sensory Deficits Problem List Initiated/Reviewed/Updated: No Orders Last 24hrs: Active Orders 24 hr Category Date Time Status Admission Status [Patient Status] [ADT] Routine ADT 04/06/21 10:01 Active Ambulate [RC] ASDIRECTED Care 04/06/21 09:57 Active Blood Glucose Check, Bedside [RC] WITHMEALSANDBED Care 04/06/21 09:57 Active Communication Order [RC] BID Care 04/06/21 09:57 Active Oxygen Therapy [RC] PRN Care 04/06/21 09:57 Active Peripheral IV Care [RC] . DIRECTED Care 04/06/21 09:57 Active Ready for Discharge [RC] PER UNIT ROUTINE Care 04/06/21 09:57 Active Up With Assistance [RC] ASDIRECTED Care 04/06/21 09:57 Active Up to Chair [RC] ASDIRECTED Care 04/06/21 09:57 Active VTE/DVT Education [RC] PER UNIT ROUTINE Care 04/06/21 09:57 Active Vital Signs [RC] Q4H Care 04/06/21 09:57 Active OT Evaluation and Treatment [CONS] Routine Cons 04/06/21 09:57 Active PT Evaluation and Treatment [CONS] Routine Cons 04/06/21 09:57 Active Consistent Carbohydrate Diet [DIET] Diet 04/06/21 Breakfast Active Fluid Restriction [DIET] Diet 04/06/21 Dinner Active BASIC METABOLIC PANEL,BMP [CHEM] Routine Lab 04/10/21 05:00 Ordered Acetaminophen [TylenoL] Med 04/06/21 09:57 Ordered 650 mg PO Q4H PRN Ascorbic Acid [Vitamin C] Med 04/07/21 09:00 Ordered 1,000 mg PO DAILY Aspirin [Halfprin] Med 04/07/21 09:00 Ordered 81 mg PO DAILY Dextrose 50% in Water Med 04/06/21 09:57 Ordered 50 ml IVPUSH Q15M PRN Dextrose 50% in Water Med 04/06/21 09:57 Ordered 50 ml IVPUSH Q15M PRN Docusate Sodium [Colace] Med 04/06/21 09:57 Ordered 100 mg PO BID PRN Docusate Sodium/Sennosides [Senna Plus] Med 04/06/21 09:57 Ordered 1 tab PO BEDTIME PRN Enoxaparin [Lovenox] Med 04/07/21 09:00 Ordered 30 mg SUBCUT DAILY FLUoxetine [PROzac] Med 04/06/21 14:00 Ordered 20 mg PO TID Furosemide [Lasix] Med 04/06/21 14:00 Ordered 60 mg PO TID Gabapentin [Neurontin] Med 04/06/21 14:00 Ordered 300 mg PO TID Glucagon,Human Recombinant [GlucaGen] Med 04/06/21 09:57 Ordered 1 mg IM Q15M PRN Glucagon,Human Recombinant [GlucaGen] Med 04/06/21 09:57 Ordered 1 mg IM Q15M PRN Insulin Lispro Prot/Lispro [HumaLOG Mix 75-25] Med 04/06/21 18:00 Ordered 32 unit SUBCUT BIDMEALS Insulin Lispro [HumaLOG] Med 04/06/21 12:00 Ordered See Protocol SUBCUT WITHMEALSANDBED Isosorbide Mononitrate [Imdur] Med 04/07/21 09:00 Ordered 30 mg PO DAILY Metoprolol Tartrate [Lopressor] Med 04/06/21 21:00 Ordered 100 mg PO BID Montelukast [Singulair] Med 04/06/21 21:00 Ordered 10 mg PO BEDTIME Ondansetron [Zofran] Med 04/06/21 09:57 Ordered 4 mg IVPUSH Q4H PRN Potassium Chloride [Klor-Con 10] Med 04/07/21 09:00 Ordered 20 meq PO DAILY Simvastatin [Zocor] Med 04/06/21 21:00 Ordered 40 mg PO BEDTIME Sodium Chloride 0.9% [Saline Flush] Med 04/06/21 09:57 Ordered 10 ml FLUSH ASDIRECTED PRN Sodium Chloride 0.9% [Saline Flush] Med 04/06/21 09:57 Ordered 10 ml FLUSH ASDIRECTED PRN Spironolactone [Aldactone] Med 04/07/21 09:00 Ordered 25 mg PO DAILY allopurinoL [Zyloprim] Med 04/07/21 09:00 Ordered 100 mg PO DAILY amLODIPine [Norvasc] Med 04/07/21 09:00 Ordered 5 mg PO DAILY bisacodyL [Dulcolax] Med 04/06/21 09:57 Ordered 5 mg PO DAILY PRN calcitrioL [Rocaltrol] Med 04/07/21 09:00 Ordered 0.25 mcg PO DAILY cephALEXin [Keflex] Med 04/06/21 14:00 Ordered 500 mg PO Q8HR glipiZIDE [Glucotrol] Med 04/07/21 09:00 Ordered 5 mg PO DAILY Peripheral IV Insertion Adult [OM.PC] Stat Oth 04/06/21 09:57 Ordered Code Status [Resuscitation Status] Routine Resus Stat 04/06/21 10:01 Ordered Medication Orders Acetaminophen (Acetaminophen 325 Mg Tab) 650 mg PO Q4H PRN PRN Reason: Pain (Mild 1-3)/fever Allopurinol (Allopurinol 100 Mg Tab) 100 mg PO DAILY [facility] Amlodipine Besylate (Amlodipine 5 Mg Tab) 5 mg PO DAILY [facility] Ascorbic Acid (Ascorbic Acid 500 Mg Tab) 1,000 mg PO DAILY [facility] Aspirin (Aspirin 81 Mg Tab.Ec) 81 mg PO DAILY [facility] Bisacodyl (Bisacodyl 5 Mg Tab) 5 mg PO DAILY PRN PRN Reason: Constipation Calcitriol (Calcitriol 0.25 Mcg Cap) 0.25 mcg PO DAILY [facility] Cephalexin (Cephalexin 500 Mg Cap) 500 mg PO Q8HR [facility] Dextrose/Water (50% Dextrose In Water 50 Ml Syringe) 50 ml IVPUSH Q15M PRN PRN Reason: Hypoglycemia Dextrose/Water (50% Dextrose In Water 50 Ml Syringe) 50 ml IVPUSH Q15M PRN PRN Reason: Hypoglycemia Docusate Sodium (Docusate Sodium 100 Mg Cap) 100 mg PO BID PRN PRN Reason: Constipation Enoxaparin Sodium (Enoxaparin 30 Mg/0.3 Ml Syringe) 30 mg SUBCUT DAILY [facility] Fluoxetine HCl (Fluoxetine 10 Mg Cap) 20 mg PO TID [facility] Furosemide (Furosemide 40 Mg Tab) 60 mg PO TID [facility] Gabapentin (Gabapentin 300 Mg Cap) 300 mg PO TID [facility] Glipizide (Glipizide 5 Mg Tab) 5 mg PO DAILY [facility] Glucagon (Glucagon,Human Recombinant 1 Mg Vial) 1 mg IM Q15M PRN PRN Reason: Hypoglycemia Glucagon (Glucagon,Human Recombinant 1 Mg Vial) 1 mg IM Q15M PRN PRN Reason: Hypoglycemia Insulin Human Lispro (Insulin Lispro 100 Units/Ml 3 Ml Vial) 0 unit SUBCUT WITHMEALSANDBED [facility]; Protocol Insulin Lispro Protam/Lispro Human (Insulin Lispro Protamine/Lispro 75-25 100 Units/Ml 10 Ml Vial) 32 unit SUBCUT BIDMEALS [facility] Isosorbide Mononitrate (Isosorbide Mononitrate 30 Mg Tab.Er) 30 mg PO DAILY [facility] Metoprolol Tartrate (Metoprolol Tartrate 50 Mg Tab) 100 mg PO BID [facility] Montelukast Sodium (Montelukast 10 Mg Tab) 10 mg PO BEDTIME [facility] Ondansetron HCl (Ondansetron 4 Mg/2 Ml Sdv) 4 mg IVPUSH Q4H PRN PRN Reason: Nausea/Vomiting Potassium Chloride (Potassium Chloride 10 Meq Tab.Er) 20 meq PO DAILY [facility] Senna/Docusate Sodium (Docusate Sodium/Sennosides 50-8.6 Mg Tab) 1 tab PO BEDTIME PRN PRN Reason: Constipation Simvastatin (Simvastatin 40 Mg Tab) 40 mg PO BEDTIME [facility] Sodium Chloride (Sodium Chloride 0.9% 10 Ml Syringe) 10 ml FLUSH ASDIRECTED PRN PRN Reason: Keep Vein Open Sodium Chloride (Sodium Chloride 0.9% 10 Ml Syringe) 10 ml FLUSH ASDIRECTED PRN PRN Reason: Keep Vein Open Spironolactone (Spironolactone 25 Mg Tab) 25 mg PO DAILY [facility] Assessment/Plan Comment:: Multiple falls: multifactorial spinal stenosis Pt states that she is scheduled for back surgery in Apr. Obesity, Chronic lower ext edema: Continue home medications. Old RT ankle injury ( with chronic brace). UTI: cult Proteus. Teated with Rocephin then switched to Cefazolin. Hyponatremia: improved with mild fluid restriction. Repeat Na one Saturday, fluid restriction to 1.5 L DM type 2, recently stopped Insulin to oral medications. pt states that Lantus caused her severe edema. > Humalog 75/25 at 32 BID: BS is better CKD stage 4 Needs PT/OT> for SWING. up in chair TID and ambulate TID DVT prophylaxis: stat Lovenox
[2021-04-06] MEDS: Insulin Lispro 100 Units/ML 3 ML Vial SUBCUT SCH ×3 (12:34→21:36)
[2021-04-06] MEDS ORDERED: Gabapentin 300 MG Cap PO SCH ×2 (14:00→21:00)
[2021-04-06] MEDS ORDERED: Ondansetron 4 MG Tab.DIS PO PRN (14:35)
[2021-04-06] MEDS: Furosemide 40 MG Tab PO SCH ×2 (15:33→21:32)
[2021-04-06] MEDS: Gabapentin 100 MG Cap PO SCH ×2 (15:33→21:29)
[2021-04-06] MEDS: Cephalexin 500 MG Cap PO SCH ×2 (15:34→21:31)
[2021-04-06] MEDS: FLUoxetine 10 MG Cap PO SCH ×2 (15:34→21:30)
[2021-04-06] MEDS: Insulin Lispro Protamine/Lispro 75-25 100 Units/ML 10 ML Vial SUBCUT SCH (17:53)
[2021-04-06] MEDS: Metoprolol Tartrate 50 MG Tab PO SCH (21:31)
[2021-04-06] MEDS: Simvastatin 40 MG Tab PO SCH (21:31)
[2021-04-06] MEDS: Montelukast 10 MG Tab PO SCH (21:32)
[2021-04-07] MEDS: Cephalexin 500 MG Cap PO SCH ×3 (06:42→21:18)
[2021-04-07] MEDS: Spironolactone 25 MG Tab PO SCH (08:41)
[2021-04-07] MEDS: amLODIPine 5 MG Tab PO SCH (08:42)
[2021-04-07] MEDS: Metoprolol Tartrate 50 MG Tab PO SCH ×2 (08:42→21:14)
[2021-04-07] MEDS: FLUoxetine 10 MG Cap PO SCH ×3 (08:42→21:14)
[2021-04-07] MEDS: Allopurinol 100 MG Tab PO SCH (08:42)
[2021-04-07] MEDS: Gabapentin 100 MG Cap PO SCH ×3 (08:43→21:13)
[2021-04-07] MEDS: Ascorbic Acid 500 MG Tab PO SCH (08:43)
[2021-04-07] MEDS: Isosorbide Mononitrate 30 MG Tab.ER PO SCH (08:43)
[2021-04-07] MEDS: Potassium Chloride 10 MEQ Tab.ER PO SCH (08:44)
[2021-04-07] MEDS: Calcitriol 0.25 MCG Cap PO SCH (08:44)
[2021-04-07] MEDS: Insulin Lispro 100 Units/ML 3 ML Vial SUBCUT SCH ×4 (08:45→21:12)
[2021-04-07] MEDS: Insulin Lispro Protamine/Lispro 75-25 100 Units/ML 10 ML Vial SUBCUT SCH ×2 (08:57→17:19)
[2021-04-07] MEDS ORDERED: glipiZIDE 5 MG Tab PO SCH (09:00)
[2021-04-07] MEDS: Enoxaparin 30 MG/0.3 ML Syringe SUBCUT SCH (09:05)
[2021-04-07] MEDS: Aspirin 81 MG Tab.EC PO SCH (09:05)
[2021-04-07] MEDS: Furosemide 40 MG Tab PO SCH ×3 (09:06→21:11)
--- NOTE | 2021-04-07 10:28 | PCM.SN.2 ---
- Free Text/Narrative Note: I was notified by RN that pt may have hematoma to left upper arm. on exam likely hematoma>> for US Time Documentation
--- NOTE | 2021-04-07 15:37 | US ---
EXAMINATION: Extremity Non Vascular Lt SEX: Female AGE: 70 years CLINICAL HISTORY: 62-year-old female injured left arm sustained in a fall. ? hematoma Interpretation: Abnormal. Sonographic imaging soft tissues upper LUE demonstrates 3.5 cm mixed density, echogenic "mass" (edematous muscle?) with marginal crescentic 7.7 x 18 mm fluid collection (local bleed and/or small hematoma). Muscle "bruised" versus biceps tendon rupture? Clinical? No associated pathologic echogenic "shadowing" calcifications. Suggest MRI would be the next best least invasive diagnostic modality to consider if clinically warranted.
[2021-04-07] MEDS: Simvastatin 40 MG Tab PO SCH (21:18)
[2021-04-07] MEDS: Montelukast 10 MG Tab PO SCH (21:18)
[2021-04-08] MEDS: Cephalexin 500 MG Cap PO SCH ×3 (06:00→22:05)
[2021-04-08] MEDS: Spironolactone 25 MG Tab PO SCH (08:51)
[2021-04-08] MEDS: Ascorbic Acid 500 MG Tab PO SCH (08:51)
[2021-04-08] MEDS: Furosemide 40 MG Tab PO SCH ×3 (08:51→22:00)
[2021-04-08] MEDS: Calcitriol 0.25 MCG Cap PO SCH (08:51)
[2021-04-08] MEDS: Potassium Chloride 10 MEQ Tab.ER PO SCH (08:51)
[2021-04-08] MEDS: Metoprolol Tartrate 50 MG Tab PO SCH ×2 (08:51→22:03)
[2021-04-08] MEDS: Gabapentin 100 MG Cap PO SCH ×3 (08:51→22:03)
[2021-04-08] MEDS: Allopurinol 100 MG Tab PO SCH (08:53)
[2021-04-08] MEDS: amLODIPine 5 MG Tab PO SCH (08:53)
[2021-04-08] MEDS: Enoxaparin 30 MG/0.3 ML Syringe SUBCUT SCH (08:54)
[2021-04-08] MEDS: FLUoxetine 10 MG Cap PO SCH ×3 (08:54→22:04)
[2021-04-08] MEDS: Isosorbide Mononitrate 30 MG Tab.ER PO SCH (08:54)
[2021-04-08] MEDS: Aspirin 81 MG Tab.EC PO SCH (08:54)
[2021-04-08] MEDS: Insulin Lispro Protamine/Lispro 75-25 100 Units/ML 10 ML Vial SUBCUT SCH ×2 (09:05→17:22)
[2021-04-08] MEDS: Insulin Lispro 100 Units/ML 3 ML Vial SUBCUT SCH ×4 (09:05→21:55)
--- NOTE | 2021-04-08 11:13 | PCM.SN.2 ---
- Free Text/Narrative Note: US showed ? hematoma to left upper arm. pt reports it is getting better. and it seems smaller on exam today Time Documentation
[2021-04-08] MEDS: Montelukast 10 MG Tab PO SCH (22:01)
[2021-04-08] MEDS: Simvastatin 40 MG Tab PO SCH (22:06)
[2021-04-09] MEDS: Cephalexin 500 MG Cap PO SCH ×3 (05:40→21:01)
[2021-04-09] MEDS: Insulin Lispro 100 Units/ML 3 ML Vial SUBCUT SCH ×4 (08:56→21:10)
[2021-04-09] MEDS: Insulin Lispro Protamine/Lispro 75-25 100 Units/ML 10 ML Vial SUBCUT SCH ×2 (08:56→17:35)
[2021-04-09] MEDS: Potassium Chloride 10 MEQ Tab.ER PO SCH (09:35)
[2021-04-09] MEDS: Ascorbic Acid 500 MG Tab PO SCH (09:36)
[2021-04-09] MEDS: Spironolactone 25 MG Tab PO SCH (09:36)
[2021-04-09] MEDS: Aspirin 81 MG Tab.EC PO SCH (09:37)
[2021-04-09] MEDS: Allopurinol 100 MG Tab PO SCH (09:38)
[2021-04-09] MEDS: amLODIPine 5 MG Tab PO SCH (09:38)
[2021-04-09] MEDS: Metoprolol Tartrate 50 MG Tab PO SCH ×2 (09:39→21:02)
[2021-04-09] MEDS: Isosorbide Mononitrate 30 MG Tab.ER PO SCH (09:40)
[2021-04-09] MEDS: FLUoxetine 10 MG Cap PO SCH ×3 (09:40→21:01)
[2021-04-09] MEDS: Calcitriol 0.25 MCG Cap PO SCH (09:41)
[2021-04-09] MEDS: Gabapentin 100 MG Cap PO SCH ×3 (09:41→21:01)
[2021-04-09] MEDS: Furosemide 40 MG Tab PO SCH ×3 (09:42→21:01)
[2021-04-09] MEDS: Enoxaparin 30 MG/0.3 ML Syringe SUBCUT SCH (09:42)
[2021-04-09] MEDS: Acetaminophen 325 MG Tab PO PRN (09:49)
[2021-04-09] MEDS: Montelukast 10 MG Tab PO SCH (21:01)
[2021-04-09] MEDS: Simvastatin 40 MG Tab PO SCH (21:02)
[2021-04-10] MEDS: Acetaminophen 325 MG Tab PO PRN (03:25)
[2021-04-10] MEDS: Cephalexin 500 MG Cap PO SCH (05:24)
[2021-04-10 07:54] LABS: ANION GAP 14.5 mEq/L (7-13)
[2021-04-10] MEDS: Insulin Lispro 100 Units/ML 3 ML Vial SUBCUT SCH ×4 (09:13→21:17)
[2021-04-10] MEDS: Insulin Lispro Protamine/Lispro 75-25 100 Units/ML 10 ML Vial SUBCUT SCH ×2 (09:14→17:31)
[2021-04-10] MEDS: amLODIPine 5 MG Tab PO SCH (09:15)
[2021-04-10] MEDS: Gabapentin 100 MG Cap PO SCH ×3 (09:15→21:07)
[2021-04-10] MEDS: Metoprolol Tartrate 50 MG Tab PO SCH ×2 (09:15→21:10)
[2021-04-10] MEDS: FLUoxetine 10 MG Cap PO SCH ×3 (09:17→21:08)
[2021-04-10] MEDS: Calcitriol 0.25 MCG Cap PO SCH (09:19)
[2021-04-10] MEDS: Ascorbic Acid 500 MG Tab PO SCH (09:19)
[2021-04-10] MEDS: Spironolactone 25 MG Tab PO SCH (09:20)
[2021-04-10] MEDS: Potassium Chloride 10 MEQ Tab.ER PO SCH (09:20)
[2021-04-10] MEDS: Isosorbide Mononitrate 30 MG Tab.ER PO SCH (09:20)
[2021-04-10] MEDS: Aspirin 81 MG Tab.EC PO SCH (09:21)
[2021-04-10] MEDS: Furosemide 40 MG Tab PO SCH ×3 (09:21→21:10)
[2021-04-10] MEDS: Enoxaparin 30 MG/0.3 ML Syringe SUBCUT SCH (09:24)
--- NOTE | 2021-04-10 11:58 | PCM.PN ---
- General Info Date of Service: 04/10/21 Functional Status: Reports: Pain Controlled, Tolerating Diet - Review of Systems General: Denies: Fever Pulmonary: Denies: Shortness of Breath Cardiovascular: Denies: Chest Pain Gastrointestinal: Denies: Abdominal Pain Neurological: Denies: Confusion Psychiatric: Denies: Confusion - Patient Data Vitals - Most Recent: Last Vital Signs Temp 97.9 F 04/10/21 08:00 Pulse 64 04/10/21 09:15 Resp 14 04/10/21 08:00 BP 160/51 H 04/10/21 09:20 Pulse Ox 95 04/09/21 20:00 Weight - Most Recent: 245 lb 8 oz I&O - Last 24 Hours: Intake & Output 04/09/21 04/10/21 04/10/21 22:59 06:59 14:59 Intake Total 150 100 Balance 150 100 Lab Results Last 24 Hours: Laboratory Results - last 24 hr 04/09/21 04/09/21 04/10/21 Range/Units 17:07 21:08 05:45 Sodium 137 (136-145) mmol/L Potassium 4.5 (3.5-5.1) mmol/L Chloride 98 (98-107) mmol/L Carbon Dioxide 29 (21-32) mmol/L Anion Gap 14.5 H (7-13) mEq/L BUN 97 H (7-18) mg/dL Creatinine 3.17 H (0.55-1.02) mg/dL Est Cr Clr Drug Dosing 13.43 mL/min Estimated GFR (MDRD) 15 Glucose 227 H (70-99) mg/dL POC Glucose 193 H 190 H (70-99) mg/dL Calcium 9.2 (8.5-10.1) mg/dL 04/10/21 04/10/21 Range/Units 07:46 11:21 Sodium (136-145) mmol/L Potassium (3.5-5.1) mmol/L Chloride (98-107) mmol/L Carbon Dioxide (21-32) mmol/L Anion Gap (7-13) mEq/L BUN (7-18) mg/dL Creatinine (0.55-1.02) mg/dL Est Cr Clr Drug Dosing mL/min Estimated GFR (MDRD) Glucose (70-99) mg/dL POC Glucose 215 H 275 H (70-99) mg/dL Calcium (8.5-10.1) mg/dL Med Orders - Current: Current Medications Acetaminophen (Acetaminophen 325 Mg Tab) 650 mg PO Q4H PRN PRN Reason: Pain (Mild 1-3)/fever Last Admin: 04/10/21 03:25 Dose: 650 mg Documented by: Allopurinol (Allopurinol 100 Mg Tab) 100 mg PO DAILY [facility] Last Admin: 04/09/21 09:38 Dose: 100 mg Documented by: Amlodipine Besylate (Amlodipine 5 Mg Tab) 5 mg PO DAILY [facility] Last Admin: 04/10/21 09:15 Dose: 5 mg Documented by: Ascorbic Acid (Ascorbic Acid 500 Mg Tab) 1,000 mg PO DAILY [facility] Last Admin: 04/10/21 09:19 Dose: 1,000 mg Documented by: Aspirin (Aspirin 81 Mg Tab.Ec) 81 mg PO DAILY [facility] Last Admin: 04/10/21 09:21 Dose: 81 mg Documented by: Bisacodyl (Bisacodyl 5 Mg Tab) 5 mg PO DAILY PRN PRN Reason: Constipation Calcitriol (Calcitriol 0.25 Mcg Cap) 0.25 mcg PO DAILY [facility] Last Admin: 04/10/21 09:19 Dose: 0.25 mcg Documented by: Cephalexin (Cephalexin 500 Mg Cap) 500 mg PO Q8HR [facility] Last Admin: 04/10/21 05:24 Dose: 500 mg Documented by: Dextrose/Water (50% Dextrose In Water 50 Ml Syringe) 50 ml IVPUSH Q15M PRN PRN Reason: Hypoglycemia Docusate Sodium (Docusate Sodium 100 Mg Cap) 100 mg PO BID PRN PRN Reason: Constipation Enoxaparin Sodium (Enoxaparin 30 Mg/0.3 Ml Syringe) 30 mg SUBCUT DAILY [facility] Last Admin: 04/10/21 09:24 Dose: Not Given Documented by: Fluoxetine HCl (Fluoxetine 10 Mg Cap) 20 mg PO TID [facility] Last Admin: 04/10/21 09:17 Dose: 20 mg Documented by: Furosemide (Furosemide 40 Mg Tab) 60 mg PO TID [facility] Last Admin: 04/10/21 09:21 Dose: 60 mg Documented by: Gabapentin (Gabapentin 100 Mg Cap) 200 mg PO TID [facility] Last Admin: 04/10/21 09:15 Dose: 200 mg Documented by: Glucagon (Glucagon,Human Recombinant 1 Mg Vial) 1 mg IM Q15M PRN PRN Reason: Hypoglycemia Insulin Human Lispro (Insulin Lispro 100 Units/Ml 3 Ml Vial) 0 unit SUBCUT WITHMEALSANDBED [facility]; Protocol Last Admin: 04/10/21 09:13 Dose: 2 units Documented by: Insulin Lispro Protam/Lispro Human (Insulin Lispro Protamine/Lispro 75-25 100 Units/Ml 10 Ml Vial) 32 unit SUBCUT BIDMEALS [facility] Last Admin: 04/10/21 09:14 Dose: 32 units Documented by: Isosorbide Mononitrate (Isosorbide Mononitrate 30 Mg Tab.Er) 30 mg PO DAILY [facility] Last Admin: 04/10/21 09:20 Dose: 30 mg Documented by: Metoprolol Tartrate (Metoprolol Tartrate 50 Mg Tab) 100 mg PO BID [facility] Last Admin: 04/10/21 09:15 Dose: 100 mg Documented by: Montelukast Sodium (Montelukast 10 Mg Tab) 10 mg PO BEDTIME [facility] Last Admin: 04/09/21 21:01 Dose: 10 mg Documented by: Ondansetron HCl (Ondansetron 4 Mg Tab.Dis) 4 mg PO Q4H PRN PRN Reason: Nausea/Vomiting Potassium Chloride (Potassium Chloride 10 Meq Tab.Er) 20 meq PO DAILY [facility] Last Admin: 04/10/21 09:20 Dose: 20 meq Documented by: Senna/Docusate Sodium (Docusate Sodium/Sennosides 50-8.6 Mg Tab) 1 tab PO BEDTIME PRN PRN Reason: Constipation Simvastatin (Simvastatin 40 Mg Tab) 40 mg PO BEDTIME [facility] Last Admin: 04/09/21 21:02 Dose: 40 mg Documented by: Sodium Chloride (Sodium Chloride 0.9% 10 Ml Syringe) 10 ml FLUSH ASDIRECTED PRN PRN Reason: Keep Vein Open Spironolactone (Spironolactone 25 Mg Tab) 25 mg PO DAILY [facility] Last Admin: 04/10/21 09:20 Dose: 25 mg Documented by: Discontinued Medications Gabapentin (Gabapentin 300 Mg Cap) 300 mg PO BEDTIME [facility] Glipizide (Glipizide 5 Mg Tab) 5 mg PO DAILY [facility] - Exam Quality Assessment: No: Supplemental Oxygen General: Alert, Oriented, Cooperative Extremities: Normal Inspection, Pedal Edema (mild) Skin: Ecchymosis, Other (Left arm hematoma is better) Neurological: No New Focal Deficit Psy/Mental Status: Alert, Normal Affect - Patient Data Lab Results Last 24 hrs: Laboratory Results - last 24 hr 04/09/21 04/09/21 04/10/21 Range/Units 17:07 21:08 05:45 Sodium 137 (136-145) mmol/L Potassium 4.5 (3.5-5.1) mmol/L Chloride 98 (98-107) mmol/L Carbon Dioxide 29 (21-32) mmol/L Anion Gap 14.5 H (7-13) mEq/L BUN 97 H (7-18) mg/dL Creatinine 3.17 H (0.55-1.02) mg/dL Est Cr Clr Drug Dosing 13.43 mL/min Estimated GFR (MDRD) 15 Glucose 227 H (70-99) mg/dL POC Glucose 193 H 190 H (70-99) mg/dL Calcium 9.2 (8.5-10.1) mg/dL 04/10/21 04/10/21 Range/Units 07:46 11:21 Sodium (136-145) mmol/L Potassium (3.5-5.1) mmol/L Chloride (98-107) mmol/L Carbon Dioxide (21-32) mmol/L Anion Gap (7-13) mEq/L BUN (7-18) mg/dL Creatinine (0.55-1.02) mg/dL Est Cr Clr Drug Dosing mL/min Estimated GFR (MDRD) Glucose (70-99) mg/dL POC Glucose 215 H 275 H (70-99) mg/dL Calcium (8.5-10.1) mg/dL Result Diagrams: 04/10/21 05:45 Sepsis Event Note - Evaluation Sepsis Screening Result: No Definite Risk - Focused Exam Vital Signs: Vital Signs Temp Pulse Pulse Resp BP BP 04/10/21 09:20 160/51 H 04/10/21 09:15 64 160/51 H 04/10/21 08:00 97.9 F 40 L 14 160/51 H - Problem List Review Problem List Initiated/Reviewed/Updated: No - Plan Plan:: Multiple falls: multifactorial spinal stenosis Pt is scheduled for back surgery in Apr. Obesity, Chronic lower ext edema: Continue home medications. Decrease Lasix from 60 mg TID to 40 mg TID. For labs in 2 days. Old RT ankle injury ( with chronic brace). UTI: cult Proteus. Teated with Rocephin then switched to Cefazolin. Completed treatment. Hyponatremia: improved with mild fluid restriction. fluid restriction to 1.5 L DM type 2, recently stopped Insulin to oral medications. pt states that Lantus caused her severe edema. > Humalog 75/25 at 32 BID >>> 37 units BID CKD stage 4 Needs PT/OT> for SWING. up in chair TID and ambulate TID DVT prophylaxis: Pt was advised to comply with Lovenox, otherwise she is at higher risk for DVT. Pt agrees.
[2021-04-10] MEDS: Allopurinol 100 MG Tab PO SCH (17:06)
[2021-04-10] MEDS: Montelukast 10 MG Tab PO SCH (21:08)
[2021-04-10] MEDS: Simvastatin 40 MG Tab PO SCH (21:08)
[2021-04-11] MEDS: FLUoxetine 10 MG Cap PO SCH ×3 (08:29→20:14)
[2021-04-11] MEDS: Gabapentin 100 MG Cap PO SCH ×3 (08:29→20:13)
[2021-04-11] MEDS: Furosemide 40 MG Tab PO SCH ×3 (08:30→20:13)
[2021-04-11] MEDS: Potassium Chloride 10 MEQ Tab.ER PO SCH (08:32)
[2021-04-11] MEDS: Ascorbic Acid 500 MG Tab PO SCH (08:32)
[2021-04-11] MEDS: Calcitriol 0.25 MCG Cap PO SCH (08:33)
[2021-04-11] MEDS: Allopurinol 100 MG Tab PO SCH (08:33)
[2021-04-11] MEDS: Aspirin 81 MG Tab.EC PO SCH (08:33)
[2021-04-11] MEDS: amLODIPine 5 MG Tab PO SCH (08:33)
[2021-04-11] MEDS: Spironolactone 25 MG Tab PO SCH (08:33)
[2021-04-11] MEDS: Isosorbide Mononitrate 30 MG Tab.ER PO SCH (08:33)
[2021-04-11] MEDS: Enoxaparin 30 MG/0.3 ML Syringe SUBCUT SCH (08:35)
[2021-04-11] MEDS: Insulin Lispro 100 Units/ML 3 ML Vial SUBCUT SCH ×4 (08:37→21:03)
[2021-04-11] MEDS: Insulin Lispro Protamine/Lispro 75-25 100 Units/ML 10 ML Vial SUBCUT SCH ×2 (08:40→17:49)
[2021-04-11] MEDS: Metoprolol Tartrate 50 MG Tab PO SCH ×2 (08:50→20:58)
[2021-04-11] MEDS: Acetaminophen 325 MG Tab PO PRN (20:14)
[2021-04-11] MEDS: Montelukast 10 MG Tab PO SCH (20:58)
[2021-04-11] MEDS: Simvastatin 40 MG Tab PO SCH (20:59)
[2021-04-12 06:47] LABS: ANION GAP 12.5 mEq/L (7-13)
[2021-04-12 07:44] LABS: HEMOGLOBIN A1C 8.2 % (<5.7)
[2021-04-12] MEDS: Insulin Lispro 100 Units/ML 3 ML Vial SUBCUT SCH ×4 (08:18→20:49)
[2021-04-12] MEDS: Isosorbide Mononitrate 30 MG Tab.ER PO SCH (08:24)
[2021-04-12] MEDS: Calcitriol 0.25 MCG Cap PO SCH (08:24)
[2021-04-12] MEDS: Ascorbic Acid 500 MG Tab PO SCH (08:24)
[2021-04-12] MEDS: Aspirin 81 MG Tab.EC PO SCH (08:24)
[2021-04-12] MEDS: Potassium Chloride 10 MEQ Tab.ER PO SCH (08:24)
[2021-04-12] MEDS: Gabapentin 100 MG Cap PO SCH ×3 (08:24→20:51)
[2021-04-12] MEDS: FLUoxetine 10 MG Cap PO SCH ×3 (08:24→20:50)
[2021-04-12] MEDS: Allopurinol 100 MG Tab PO SCH (08:25)
[2021-04-12] MEDS: amLODIPine 5 MG Tab PO SCH (08:25)
[2021-04-12] MEDS: Spironolactone 25 MG Tab PO SCH (08:25)
[2021-04-12] MEDS: Furosemide 40 MG Tab PO SCH ×3 (08:25→20:51)
[2021-04-12] MEDS: Metoprolol Tartrate 50 MG Tab PO SCH ×2 (08:26→20:50)
[2021-04-12] MEDS: Enoxaparin 30 MG/0.3 ML Syringe SUBCUT SCH (08:27)
[2021-04-12] MEDS: Insulin Lispro Protamine/Lispro 75-25 100 Units/ML 10 ML Vial SUBCUT SCH ×2 (08:32→17:22)
[2021-04-12] MEDS: Simvastatin 40 MG Tab PO SCH (20:51)
[2021-04-12] MEDS: Montelukast 10 MG Tab PO SCH (20:51)
[2021-04-13] MEDS: Calcitriol 0.25 MCG Cap PO SCH (08:18)
[2021-04-13] MEDS: Furosemide 40 MG Tab PO SCH ×3 (08:19→20:49)
[2021-04-13] MEDS: Spironolactone 25 MG Tab PO SCH (08:19)
[2021-04-13] MEDS: Metoprolol Tartrate 50 MG Tab PO SCH ×2 (08:19→20:47)
[2021-04-13] MEDS: Isosorbide Mononitrate 30 MG Tab.ER PO SCH (08:20)
[2021-04-13] MEDS: Gabapentin 100 MG Cap PO SCH ×3 (08:20→20:48)
[2021-04-13] MEDS: Aspirin 81 MG Tab.EC PO SCH (08:20)
[2021-04-13] MEDS: amLODIPine 5 MG Tab PO SCH (08:20)
[2021-04-13] MEDS: Allopurinol 100 MG Tab PO SCH (08:20)
[2021-04-13] MEDS: Ascorbic Acid 500 MG Tab PO SCH (08:21)
[2021-04-13] MEDS: Potassium Chloride 10 MEQ Tab.ER PO SCH (08:21)
[2021-04-13] MEDS: Enoxaparin 30 MG/0.3 ML Syringe SUBCUT SCH (08:22)
[2021-04-13] MEDS: Insulin Lispro 100 Units/ML 3 ML Vial SUBCUT SCH ×4 (08:25→20:44)
[2021-04-13] MEDS: Insulin Lispro Protamine/Lispro 75-25 100 Units/ML 10 ML Vial SUBCUT SCH ×2 (08:26→17:21)
[2021-04-13] MEDS: FLUoxetine 10 MG Cap PO SCH ×3 (08:43→20:48)
[2021-04-13] MEDS: Montelukast 10 MG Tab PO SCH (20:46)
[2021-04-13] MEDS: Simvastatin 40 MG Tab PO SCH (20:49)
[2021-04-14] MEDS: Insulin Lispro Protamine/Lispro 75-25 100 Units/ML 10 ML Vial SUBCUT SCH ×2 (08:20→17:29)
[2021-04-14] MEDS: Insulin Lispro 100 Units/ML 3 ML Vial SUBCUT SCH ×4 (08:21→21:11)
[2021-04-14] MEDS: Enoxaparin 30 MG/0.3 ML Syringe SUBCUT SCH (08:22)
[2021-04-14] MEDS: Ascorbic Acid 500 MG Tab PO SCH (08:25)
[2021-04-14] MEDS: Gabapentin 100 MG Cap PO SCH ×3 (08:26→20:32)
[2021-04-14] MEDS: Aspirin 81 MG Tab.EC PO SCH (08:26)
[2021-04-14] MEDS: Potassium Chloride 10 MEQ Tab.ER PO SCH (08:26)
[2021-04-14] MEDS: amLODIPine 5 MG Tab PO SCH (08:26)
[2021-04-14] MEDS: Allopurinol 100 MG Tab PO SCH (08:26)
[2021-04-14] MEDS: Metoprolol Tartrate 50 MG Tab PO SCH ×2 (08:27→21:10)
[2021-04-14] MEDS: FLUoxetine 10 MG Cap PO SCH ×3 (08:27→20:32)
[2021-04-14] MEDS: Furosemide 40 MG Tab PO SCH ×3 (08:27→20:32)
[2021-04-14] MEDS: Spironolactone 25 MG Tab PO SCH (08:27)
[2021-04-14] MEDS: Isosorbide Mononitrate 30 MG Tab.ER PO SCH (08:27)
[2021-04-14] MEDS: Calcitriol 0.25 MCG Cap PO SCH (08:27)
[2021-04-14] MEDS: Simvastatin 40 MG Tab PO SCH (20:31)
[2021-04-14] MEDS: Montelukast 10 MG Tab PO SCH (20:31)
[2021-04-15] MEDS: Calcitriol 0.25 MCG Cap PO SCH (08:37)
[2021-04-15] MEDS: Isosorbide Mononitrate 30 MG Tab.ER PO SCH (08:37)
[2021-04-15] MEDS: Spironolactone 25 MG Tab PO SCH (08:37)
[2021-04-15] MEDS: Aspirin 81 MG Tab.EC PO SCH (08:37)
[2021-04-15] MEDS: Gabapentin 100 MG Cap PO SCH ×3 (08:38→22:16)
[2021-04-15] MEDS: Allopurinol 100 MG Tab PO SCH (08:38)
[2021-04-15] MEDS: FLUoxetine 10 MG Cap PO SCH ×3 (08:39→22:15)
[2021-04-15] MEDS: amLODIPine 5 MG Tab PO SCH (08:39)
[2021-04-15] MEDS: Metoprolol Tartrate 50 MG Tab PO SCH ×2 (08:40→22:16)
[2021-04-15] MEDS: Ascorbic Acid 500 MG Tab PO SCH (08:41)
[2021-04-15] MEDS: Potassium Chloride 10 MEQ Tab.ER PO SCH (08:42)
[2021-04-15] MEDS: Furosemide 40 MG Tab PO SCH ×3 (08:42→22:17)
[2021-04-15] MEDS: Enoxaparin 30 MG/0.3 ML Syringe SUBCUT SCH (08:42)
[2021-04-15] MEDS: Insulin Lispro 100 Units/ML 3 ML Vial SUBCUT SCH ×4 (08:52→22:13)
[2021-04-15] MEDS: Insulin Lispro Protamine/Lispro 75-25 100 Units/ML 10 ML Vial SUBCUT SCH ×2 (08:55→18:22)
[2021-04-15] MEDS: Montelukast 10 MG Tab PO SCH (22:16)
[2021-04-15] MEDS: Simvastatin 40 MG Tab PO SCH (22:16)
[2021-04-16] MEDS: Potassium Chloride 10 MEQ Tab.ER PO SCH (09:13)
[2021-04-16] MEDS: Ascorbic Acid 500 MG Tab PO SCH (09:14)
[2021-04-16] MEDS: Calcitriol 0.25 MCG Cap PO SCH (09:14)
[2021-04-16] MEDS: Spironolactone 25 MG Tab PO SCH (09:15)
[2021-04-16] MEDS: Furosemide 40 MG Tab PO SCH ×3 (09:15→21:00)
[2021-04-16] MEDS: FLUoxetine 10 MG Cap PO SCH ×3 (09:15→20:59)
[2021-04-16] MEDS: Gabapentin 100 MG Cap PO SCH ×3 (09:15→20:59)
[2021-04-16] MEDS: Aspirin 81 MG Tab.EC PO SCH (09:16)
[2021-04-16] MEDS: Allopurinol 100 MG Tab PO SCH (09:16)
[2021-04-16] MEDS: amLODIPine 5 MG Tab PO SCH (09:17)
[2021-04-16] MEDS: Isosorbide Mononitrate 30 MG Tab.ER PO SCH (09:17)
[2021-04-16] MEDS: Metoprolol Tartrate 50 MG Tab PO SCH ×2 (09:18→21:00)
[2021-04-16] MEDS: Insulin Lispro 100 Units/ML 3 ML Vial SUBCUT SCH ×4 (09:19→20:57)
[2021-04-16] MEDS: Enoxaparin 30 MG/0.3 ML Syringe SUBCUT SCH (09:19)
[2021-04-16] MEDS: Insulin Lispro Protamine/Lispro 75-25 100 Units/ML 10 ML Vial SUBCUT SCH ×2 (09:20→18:06)
[2021-04-16] MEDS: Acetaminophen 325 MG Tab PO PRN ×2 (16:32→21:00)
[2021-04-16] MEDS: Simvastatin 40 MG Tab PO SCH (21:00)
[2021-04-16] MEDS: Montelukast 10 MG Tab PO SCH (21:00)
[2021-04-17] MEDS: FLUoxetine 10 MG Cap PO SCH ×3 (09:38→21:27)
[2021-04-17] MEDS: Spironolactone 25 MG Tab PO SCH (09:38)
[2021-04-17] MEDS: Ascorbic Acid 500 MG Tab PO SCH (09:39)
[2021-04-17] MEDS: Gabapentin 100 MG Cap PO SCH ×3 (09:39→21:26)
[2021-04-17] MEDS: Isosorbide Mononitrate 30 MG Tab.ER PO SCH (09:39)
[2021-04-17] MEDS: Metoprolol Tartrate 50 MG Tab PO SCH ×2 (09:40→21:31)
[2021-04-17] MEDS: Aspirin 81 MG Tab.EC PO SCH (09:40)
[2021-04-17] MEDS: amLODIPine 5 MG Tab PO SCH (09:40)
[2021-04-17] MEDS: Potassium Chloride 10 MEQ Tab.ER PO SCH (09:40)
[2021-04-17] MEDS: Calcitriol 0.25 MCG Cap PO SCH (09:40)
[2021-04-17] MEDS: Furosemide 40 MG Tab PO SCH ×3 (09:40→21:27)
[2021-04-17] MEDS: Enoxaparin 30 MG/0.3 ML Syringe SUBCUT SCH (09:43)
[2021-04-17] MEDS: Insulin Lispro 100 Units/ML 3 ML Vial SUBCUT SCH ×4 (09:45→21:00)
[2021-04-17] MEDS: Insulin Lispro Protamine/Lispro 75-25 100 Units/ML 10 ML Vial SUBCUT SCH ×2 (09:46→18:04)
[2021-04-17] MEDS: Allopurinol 100 MG Tab PO SCH (10:06)
[2021-04-17] MEDS: Acetaminophen 325 MG Tab PO PRN (21:25)
[2021-04-17] MEDS: Montelukast 10 MG Tab PO SCH (21:28)
[2021-04-17] MEDS: Simvastatin 40 MG Tab PO SCH (21:28)
[2021-04-18 08:10] VITALS: PULSE 54
[2021-04-18] MEDS: Insulin Lispro 100 Units/ML 3 ML Vial SUBCUT SCH ×2 (08:55→16:50)
[2021-04-18] MEDS: Gabapentin 100 MG Cap PO SCH (09:09)
[2021-04-18] MEDS: Ascorbic Acid 500 MG Tab PO SCH (09:10)
[2021-04-18] MEDS: Metoprolol Tartrate 50 MG Tab PO SCH (09:11)
[2021-04-18] MEDS: Potassium Chloride 10 MEQ Tab.ER PO SCH (09:13)
[2021-04-18] MEDS: FLUoxetine 10 MG Cap PO SCH (09:13)
[2021-04-18] MEDS: Spironolactone 25 MG Tab PO SCH (09:14)
[2021-04-18] MEDS: Isosorbide Mononitrate 30 MG Tab.ER PO SCH (09:15)
[2021-04-18] MEDS: Furosemide 40 MG Tab PO SCH (09:15)
[2021-04-18] MEDS: amLODIPine 5 MG Tab PO SCH (09:15)
[2021-04-18] MEDS: Aspirin 81 MG Tab.EC PO SCH (09:15)
[2021-04-18] MEDS: Calcitriol 0.25 MCG Cap PO SCH (09:16)
[2021-04-18] MEDS: Allopurinol 100 MG Tab PO SCH (09:16)
[2021-04-18] MEDS: Insulin Lispro Protamine/Lispro 75-25 100 Units/ML 10 ML Vial SUBCUT SCH (09:17)
[2021-04-18] MEDS: Enoxaparin 30 MG/0.3 ML Syringe SUBCUT SCH ×2 (09:18→09:25)
[2021-04-18 09:22] VITALS: BP 149/53
--- NOTE | 2021-04-18 10:04 | PCM.PN ---
- General Info Date of Service: 04/17/21 Admission Dx/Problem (Free Text): Admission Diagnosis/Problem Admission Diagnosis/Problem UTI, Urinary tract infectious disease Subjective Update: Fannie is admitted here on swing bed for physical therapy as well as wound care . She has had numerous falls at home recently, and developed significant wounds and skin tears of her upper extremities as well as her lower extremities. She has done well on swing bed here, participating well with physical therapy. - Patient Data Vitals - Most Recent: Last Vital Signs Temp 98.3 F 04/18/21 08:09 Pulse 54 L 04/18/21 09:11 Resp 20 04/18/21 08:09 BP 149/53 H 04/18/21 09:15 Pulse Ox 100 04/18/21 08:09 Weight - Most Recent: 250 lb 1.6 oz I&O - Last 24 Hours: Intake & Output 04/17/21 04/18/21 04/18/21 22:59 06:59 14:59 Intake Total 420 Balance 420 Lab Results Last 24 Hours: Laboratory Results - last 24 hr 04/17/21 04/17/21 04/17/21 Range/Units 11:32 16:42 20:46 POC Glucose 232 H 99 81 (70-99) mg/dL 04/18/21 Range/Units 07:55 POC Glucose 112 H (70-99) mg/dL Med Orders - Current: Current Medications Acetaminophen (Acetaminophen 325 Mg Tab) 650 mg PO Q4H PRN PRN Reason: Pain (Mild 1-3)/fever Last Admin: 04/17/21 21:25 Dose: 650 mg Documented by: Allopurinol (Allopurinol 100 Mg Tab) 100 mg PO DAILY [facility] Last Admin: 04/18/21 09:16 Dose: 100 mg Documented by: Amlodipine Besylate (Amlodipine 5 Mg Tab) 5 mg PO DAILY [facility] Last Admin: 04/18/21 09:15 Dose: 5 mg Documented by: Ascorbic Acid (Ascorbic Acid 500 Mg Tab) 1,000 mg PO DAILY [facility] Last Admin: 04/18/21 09:10 Dose: 1,000 mg Documented by: Aspirin (Aspirin 81 Mg Tab.Ec) 81 mg PO DAILY [facility] Last Admin: 04/18/21 09:15 Dose: 81 mg Documented by: Bisacodyl (Bisacodyl 5 Mg Tab) 5 mg PO DAILY PRN PRN Reason: Constipation Last Admin: 04/10/21 21:08 Dose: 5 mg Documented by: Calcitriol (Calcitriol 0.25 Mcg Cap) 0.25 mcg PO DAILY [facility] Last Admin: 04/18/21 09:16 Dose: 0.25 mcg Documented by: Dextrose/Water (50% Dextrose In Water 50 Ml Syringe) 50 ml IVPUSH Q15M PRN PRN Reason: Hypoglycemia Docusate Sodium (Docusate Sodium 100 Mg Cap) 100 mg PO BID PRN PRN Reason: Constipation Last Admin: 04/16/21 10:40 Dose: 100 mg Documented by: Enoxaparin Sodium (Enoxaparin 30 Mg/0.3 Ml Syringe) 30 mg SUBCUT DAILY [facility] Last Admin: 04/18/21 09:25 Dose: Not Given Documented by: Fluoxetine HCl (Fluoxetine 10 Mg Cap) 20 mg PO TID [facility] Last Admin: 04/18/21 09:13 Dose: 20 mg Documented by: Furosemide (Furosemide 40 Mg Tab) 40 mg PO TID [facility] Last Admin: 04/18/21 09:15 Dose: 40 mg Documented by: Gabapentin (Gabapentin 100 Mg Cap) 200 mg PO TID [facility] Last Admin: 04/18/21 09:09 Dose: 200 mg Documented by: Glucagon (Glucagon,Human Recombinant 1 Mg Vial) 1 mg IM Q15M PRN PRN Reason: Hypoglycemia Insulin Human Lispro (Insulin Lispro 100 Units/Ml 3 Ml Vial) 0 unit SUBCUT WITHMEALSANDBED [facility]; Protocol Last Admin: 04/18/21 08:55 Dose: Not Given Documented by: Insulin Lispro Protam/Lispro Human (Insulin Lispro Protamine/Lispro 75-25 100 Units/Ml 10 Ml Vial) 37 unit SUBCUT BIDMEALS [facility] Last Admin: 04/18/21 09:17 Dose: 37 units Documented by: Isosorbide Mononitrate (Isosorbide Mononitrate 30 Mg Tab.Er) 30 mg PO DAILY [facility] Last Admin: 04/18/21 09:15 Dose: 30 mg Documented by: Metoprolol Tartrate (Metoprolol Tartrate 50 Mg Tab) 100 mg PO BID [facility] Last Admin: 04/18/21 09:11 Dose: 100 mg Documented by: Montelukast Sodium (Montelukast 10 Mg Tab) 10 mg PO BEDTIME [facility] Last Admin: 04/17/21 21:28 Dose: 10 mg Documented by: Ondansetron HCl (Ondansetron 4 Mg Tab.Dis) 4 mg PO Q4H PRN PRN Reason: Nausea/Vomiting Potassium Chloride (Potassium Chloride 10 Meq Tab.Er) 20 meq PO DAILY [facility] Last Admin: 04/18/21 09:13 Dose: 20 meq Documented by: Senna/Docusate Sodium (Docusate Sodium/Sennosides 50-8.6 Mg Tab) 1 tab PO BEDTIME PRN PRN Reason: Constipation Simvastatin (Simvastatin 40 Mg Tab) 40 mg PO BEDTIME [facility] Last Admin: 04/17/21 21:28 Dose: 40 mg Documented by: Sodium Chloride (Sodium Chloride 0.9% 10 Ml Syringe) 10 ml FLUSH ASDIRECTED PRN PRN Reason: Keep Vein Open Spironolactone (Spironolactone 25 Mg Tab) 25 mg PO DAILY [facility] Last Admin: 04/18/21 09:14 Dose: 25 mg Documented by: Discontinued Medications Cephalexin (Cephalexin 500 Mg Cap) 500 mg PO Q8HR [facility] Last Admin: 04/10/21 05:24 Dose: 500 mg Documented by: Furosemide (Furosemide 40 Mg Tab) 60 mg PO TID [facility] Last Admin: 04/10/21 09:21 Dose: 60 mg Documented by: Gabapentin (Gabapentin 300 Mg Cap) 300 mg PO BEDTIME [facility] Glipizide (Glipizide 5 Mg Tab) 5 mg PO DAILY [facility] Insulin Lispro Protam/Lispro Human (Insulin Lispro Protamine/Lispro 75-25 100 Units/Ml 10 Ml Vial) 32 unit SUBCUT BIDMEALS [facility] Last Admin: 04/10/21 09:14 Dose: 32 units Documented by: - Exam Physical Findings Comments:: General: Fannie is a 62-year-old woman in no acute distress Oropharynx is clear, mucous membranes are moist Her skin appears much improved from a week ago. A lot of the skin tears on her upper extremities have healed, she still has noticeable bruising, but but it is all in good stages of resolution - Patient Data Lab Results Last 24 hrs: Laboratory Results - last 24 hr 04/17/21 04/17/21 04/17/21 Range/Units 11:32 16:42 20:46 POC Glucose 232 H 99 81 (70-99) mg/dL 10/26/21 Range/Units 07:55 POC Glucose 112 H (70-99) mg/dL Result Diagrams: 04/12/21 06:05 04/12/21 06:05 Sepsis Event Note - Evaluation Sepsis Screening Result: No Definite Risk - Focused Exam Vital Signs: Vital Signs Temp Pulse Pulse Resp BP BP Pulse Ox 04/18/21 09:15 146/53 H 04/18/21 09:11 54 L 146/53 H 04/18/21 08:09 98.3 F 54 L 20 146/53 H 100 - Problem List & Annotations (1) Frequent falls SNOMED Code(s): 934318399 Code(s): R29.6 - REPEATED FALLS Status: Acute (2) Lumbar degenerative disc disease SNOMED Code(s): 83255703 Code(s): M51.36 - OTHER INTERVERTEBRAL DISC DEGENERATION, LUMBAR REGION Status: Acute - Problem List Review Problem List Initiated/Reviewed/Updated: Yes - Assessment Assessment:: 1. 70-year-old woman with severe lumbar disc degenerative disease 2. Diabetes mellitus type 2, insulin-dependent 3. History of multiple and frequent falls at home 4. Skin injury in multiple sites, to both upper and lower extremities, resolving - Plan Plan:: 1. Plans made between our swing bed coordinator and patient are for her to be discharged home tomorrow. They have follow-up already scheduled for her surgery in 8 days time.
--- NOTE | 2021-04-18 10:17 | PCM.DCSUM1 ---
Discharge Summary - Hospital Course Free Text/Narrative:: Fannie has been admitted here on swing bed, after multiple falls at home. She sustained some skin tears to her upper and lower extremities. These have all healed nicely. Physical therapy has continued to work with her to strengthen her in anticipation of a surgery on her lower back on April 25. Everything is arranged for that surgery date, she has had her preoperative history and physical clearance with her primary physician. - Discharge Data Discharge Date: 04/18/21 Discharge Disposition: Home, W Home Health Agency 06 Condition: Good - Referral to Home Health Date of Face to Face Encounter: 04/18/21 Reason for Homebound Status: Severe mobility issues, Lumbar degeneration Primary Care Physician: PCP None Skilled Need: Medication management. Assistance with ADLs, including wound care and bathing - Discharge Diagnosis/Problem(s) (1) Lumbar degenerative disc disease SNOMED Code(s): 38908781 ICD Code: M51.36 - OTHER INTERVERTEBRAL DISC DEGENERATION, LUMBAR REGION Status: Acute (2) Frequent falls SNOMED Code(s): 049299579 ICD Code: R29.6 - REPEATED FALLS Status: Acute (3) Hyponatremia SNOMED Code(s): 22089291 ICD Code: E87.1 - HYPO-OSMOLALITY AND HYPONATREMIA Status: Acute - Patient Summary/Data Consults: Consultations 04/06/21 09:57 OT Evaluation and Treatment [CONS] Routine PT Evaluation and Treatment [CONS] Routine - Discharge Plan *PRESCRIPTION DRUG MONITORING PROGRAM REVIEWED*: Not Applicable *COPY OF PRESCRIPTION DRUG MONITORING REPORT IN PATIENT ELIOT: Not Applicable Prescriptions/Med Rec: Insulin Lispro Prot/Lispro [HumaLOG Mix 75-25] 30 unit SQ BID 30 Days #6 pen Home Medications: Home Meds Ascorbic Acid [Vitamin C with Alba Hips] 1,000 mg PO DAILY 04/03/21 [History] Calcitriol 0.25 mcg PO DAILY 04/03/21 [History] FLUoxetine [PROzac] 20 mg PO TID 04/03/21 [History] Furosemide 60 mg PO TID@0800,1200,1600 04/03/21 [History] Gabapentin [Neurontin] 300 mg PO TID 04/03/21 [History] Isosorbide Mononitrate [Isosorbide Mononitrate ER] 30 mg PO DAILY 04/03/21 [History] Metoprolol Tartrate 100 mg PO BID 04/03/21 [History] Montelukast [Singulair] 10 mg PO BEDTIME 04/03/21 [History] Potassium Chloride 20 meq PO BID 04/03/21 [History] Spironolactone [Aldactone] 25 mg PO DAILY 04/03/21 [History] allopurinoL [Zyloprim] 100 mg PO DAILY 04/03/21 [History] amLODIPine [Norvasc] 5 mg PO DAILY 04/03/21 [History] glipiZIDE [Glucotrol] 5 mg PO DAILY 04/03/21 [History] Simvastatin 40 mg PO BEDTIME 04/04/21 [History] Insulin Lispro Prot/Lispro [HumaLOG Mix 75-25] 30 unit SQ BID 30 Days #6 pen 04/18/21 [Rx] Patient Handouts: Fall Prevention in the Home, Adult, [id number], Insulin Injection Instructions, Using Insulin Pens, Adult - Discharge Summary/Plan Comment DC Time >30 min.: Yes Total # of Minutes for Discharge Time: 45 minutes Discharge Summary/Plan Comment: Discharge diagnoses 1. 70-year-old woman with frequent falls at home 2. Severe lumbar disc degeneration 3. Diabetes mellitus type 2, insulin-dependent 4. Coronary artery disease 5. HFpEF, secondary to coronary artery disease Discharge plan: 1. She has surgery scheduled for April 25 in [place]. She will have home health coming to evaluate her in the week interim. 2. Continue current home medications 3. She states that the Levemir was no longer covered by her insurance, so we will officially switch her to the lispro prot 75/25, 30 units twice daily. She will follow-up with her primary physician to see how this is going with her - Patient Data Vitals - Most Recent: Last Vital Signs Temp 98.3 F 04/18/21 08:09 Pulse 54 L 04/18/21 09:11 Resp 20 04/18/21 08:09 BP 149/53 H 04/18/21 09:15 Pulse Ox 100 04/18/21 08:09 Weight - Most Recent: 250 lb 1.6 oz I&O - Last 24 hours: Intake & Output 04/17/21 04/18/21 04/18/21 22:59 06:59 14:59 Intake Total 420 Balance 420 Lab Results - Last 24 hrs: Laboratory Results - last 24 hr 04/17/21 04/17/21 04/17/21 Range/Units 11:32 16:42 20:46 POC Glucose 232 H 99 81 (70-99) mg/dL 04/18/21 Range/Units 07:55 POC Glucose 112 H (70-99) mg/dL Med Orders - Current: Current Medications Acetaminophen (Acetaminophen 325 Mg Tab) 650 mg PO Q4H PRN PRN Reason: Pain (Mild 1-3)/fever Last Admin: 04/17/21 21:25 Dose: 650 mg Documented by: Allopurinol (Allopurinol 100 Mg Tab) 100 mg PO DAILY [facility] Last Admin: 04/18/21 09:16 Dose: 100 mg Documented by: Amlodipine Besylate (Amlodipine 5 Mg Tab) 5 mg PO DAILY [facility] Last Admin: 04/18/21 09:15 Dose: 5 mg Documented by: Ascorbic Acid (Ascorbic Acid 500 Mg Tab) 1,000 mg PO DAILY [facility] Last Admin: 04/18/21 09:10 Dose: 1,000 mg Documented by: Aspirin (Aspirin 81 Mg Tab.Ec) 81 mg PO DAILY [facility] Last Admin: 04/18/21 09:15 Dose: 81 mg Documented by: Bisacodyl (Bisacodyl 5 Mg Tab) 5 mg PO DAILY PRN PRN Reason: Constipation Last Admin: 04/10/21 21:08 Dose: 5 mg Documented by: Calcitriol (Calcitriol 0.25 Mcg Cap) 0.25 mcg PO DAILY [facility] Last Admin: 04/18/21 09:16 Dose: 0.25 mcg Documented by: Dextrose/Water (50% Dextrose In Water 50 Ml Syringe) 50 ml IVPUSH Q15M PRN PRN Reason: Hypoglycemia Docusate Sodium (Docusate Sodium 100 Mg Cap) 100 mg PO BID PRN PRN Reason: Constipation Last Admin: 04/16/21 10:40 Dose: 100 mg Documented by: Enoxaparin Sodium (Enoxaparin 30 Mg/0.3 Ml Syringe) 30 mg SUBCUT DAILY [facility] Last Admin: 04/18/21 09:25 Dose: Not Given Documented by: Fluoxetine HCl (Fluoxetine 10 Mg Cap) 20 mg PO TID [facility] Last Admin: 04/18/21 09:13 Dose: 20 mg Documented by: Furosemide (Furosemide 40 Mg Tab) 40 mg PO TID [facility] Last Admin: 04/18/21 09:15 Dose: 40 mg Documented by: Gabapentin (Gabapentin 100 Mg Cap) 200 mg PO TID [facility] Last Admin: 04/18/21 09:09 Dose: 200 mg Documented by: Glucagon (Glucagon,Human Recombinant 1 Mg Vial) 1 mg IM Q15M PRN PRN Reason: Hypoglycemia Insulin Human Lispro (Insulin Lispro 100 Units/Ml 3 Ml Vial) 0 unit SUBCUT WITHMEALSANDBED [facility]; Protocol Last Admin: 04/18/21 08:55 Dose: Not Given Documented by: Insulin Lispro Protam/Lispro Human (Insulin Lispro Protamine/Lispro 75-25 100 Units/Ml 10 Ml Vial) 37 unit SUBCUT BIDMEALS [facility] Last Admin: 04/18/21 09:17 Dose: 37 units Documented by: Isosorbide Mononitrate (Isosorbide Mononitrate 30 Mg Tab.Er) 30 mg PO DAILY [facility] Last Admin: 04/18/21 09:15 Dose: 30 mg Documented by: Metoprolol Tartrate (Metoprolol Tartrate 50 Mg Tab) 100 mg PO BID [facility] Last Admin: 04/18/21 09:11 Dose: 100 mg Documented by: Montelukast Sodium (Montelukast 10 Mg Tab) 10 mg PO BEDTIME [facility] Last Admin: 04/17/21 21:28 Dose: 10 mg Documented by: Ondansetron HCl (Ondansetron 4 Mg Tab.Dis) 4 mg PO Q4H PRN PRN Reason: Nausea/Vomiting Potassium Chloride (Potassium Chloride 10 Meq Tab.Er) 20 meq PO DAILY [facility] Last Admin: 04/18/21 09:13 Dose: 20 meq Documented by: Senna/Docusate Sodium (Docusate Sodium/Sennosides 50-8.6 Mg Tab) 1 tab PO BEDTIME PRN PRN Reason: Constipation Simvastatin (Simvastatin 40 Mg Tab) 40 mg PO BEDTIME [facility] Last Admin: 04/17/21 21:28 Dose: 40 mg Documented by: Sodium Chloride (Sodium Chloride 0.9% 10 Ml Syringe) 10 ml FLUSH ASDIRECTED PRN PRN Reason: Keep Vein Open Spironolactone (Spironolactone 25 Mg Tab) 25 mg PO DAILY [facility] Last Admin: 04/18/21 09:14 Dose: 25 mg Documented by: Discontinued Medications Cephalexin (Cephalexin 500 Mg Cap) 500 mg PO Q8HR [facility] Last Admin: 04/10/21 05:24 Dose: 500 mg Documented by: Furosemide (Furosemide 40 Mg Tab) 60 mg PO TID [facility] Last Admin: 04/10/21 09:21 Dose: 60 mg Documented by: Gabapentin (Gabapentin 300 Mg Cap) 300 mg PO BEDTIME [facility] Glipizide (Glipizide 5 Mg Tab) 5 mg PO DAILY [facility] Insulin Lispro Protam/Lispro Human (Insulin Lispro Protamine/Lispro 75-25 100 Units/Ml 10 Ml Vial) 32 unit SUBCUT BIDMEALS [facility] Last Admin: 04/10/21 09:14 Dose: 32 units Documented by:
== END 2021-04-18 14:00 | disposition home health service (06) | DRG 948 ==
LOC: DL.MS 10:42
PROVIDERS: ADMIT Internal Medicine; ATTEND Family Medicine
DX: R53.1 Weakness (principal); E87.1 Hypo-osmolality and hyponatremia; I50.32 Chronic diastolic (congestive) heart failure; I13.0 Hypertensive heart and chronic kidney disease with heart failure and stage 1 through stage 4 chronic kidney disease, or unspecified chronic kidney disease; N18.4 Chronic kidney disease, stage 4 (severe); N39.0 Urinary tract infection, site not specified; Z68.42 Body mass index [BMI] 45.0-49.9, adult; Z66 Do not resuscitate; R29.6 Repeated falls; E66.9 Obesity, unspecified; G89.29 Other chronic pain; R60.0 Localized edema; M51.36 Other intervertebral disc degeneration, lumbar region; I25.10 Atherosclerotic heart disease of native coronary artery without angina pectoris; H54.7 Unspecified visual loss; E78.00 Pure hypercholesterolemia, unspecified; R32 Unspecified urinary incontinence; M19.90 Unspecified osteoarthritis, unspecified site; E11.22 Type 2 diabetes mellitus with diabetic chronic kidney disease; Z79.82 Long term (current) use of aspirin; Z79.899 Other long term (current) drug therapy; Z79.84 Long term (current) use of oral hypoglycemic drugs; Z88.1 Allergy status to other antibiotic agents; Z88.8 Allergy status to other drugs, medicaments and biological substances
CPT/HCPCS: 36415; 76881-LT; 80048; 82947; 83036; 85025; 93005; 97110-GO; 97110-GP; 97162-GP; 97165-GO; 97530-GO; 97535-GO; A9270-GY; J1650; J1815-GY